=== PATIENT | female | born 1950 | race American Indian/Alaskan Native ===

== ENCOUNTER 2018-05-12 11:02 | Inpatient (IN) | payer MEDICARE, OTHER ==
--- NOTE | 2018-05-12 12:05 | C.PDOC ---
Time Seen by Provider: 05/12/18 11:37 Chief Complaint (Nursing): Weakness/Neurological Deficit Past Medical History Vital Signs: Last Vital Signs Temp 99.1 F 05/12/18 11:20 Pulse 102 H 05/12/18 11:20 Resp 15 05/12/18 11:20 BP 157/85 H 05/12/18 11:20 Pulse Ox 95 05/12/18 11:20 - Medical History PMH: HTN Denies: Chronic Kidney Disease - Social History Hx Alcohol Use: No Hx Substance Use: No ED Course And Treatment O2 Sat by Pulse Oximetry: 95 Disposition - Disposition
--- NOTE | 2018-05-12 12:16 | C.PDOC ---
History Of Present Illness WEAKNESS X 2 WKS, WORSE X 4 DAYS. S/P FALL 4 DAYS AGO DUE TO FEELING WEAK. "I LAID ON THE FLOOR FOR 30 MINS BUT WAS ABLE TO PULL MYSELF UP EVENTUALLY". PS STRUCK LLQ ON FLOOR, STILL W PERSIST PAIN. NO NV. ADVISED BY HER PROPOSAL EDITOR TO COME TO ER. NEW ONSET SUBJ FEVER AND CHILLS X 4 DAYS. DECR APPETITE X 2 WKS, +WT LOSS. +DECR UO. NO DYSURIA. EXAM MILD DIST HEENT ATRAUM LUNGS B/L RALES TO MID LUNGS NO RETRACTION SPEAKING FULL SENTNECES ABD +LLQ TEND SOFT NO R/G ATRAUM EXT AROM HIPS WO DIFF SKIN INTACT REMAINDER NEG MDM WEAKNESS, TRAUMA RO SEPSIS, INTRAABD INJ. Time Seen by Provider: 05/12/18 11:37 Chief Complaint (Nursing): Weakness/Neurological Deficit History Per: Patient History/Exam Limitations: no limitations Onset/Duration Of Symptoms: Days Current Symptoms Are (Timing): Still Present Severity: Moderate Past Medical History Reviewed: Historical Data, Nursing Documentation, Vital Signs Vital Signs: Last Vital Signs Temp 99.1 F 05/12/18 11:20 Pulse 102 H 05/12/18 11:20 Resp 15 05/12/18 11:20 BP 157/85 H 05/12/18 11:20 Pulse Ox 95 05/12/18 11:20 - Medical History PMH: HTN Denies: Chronic Kidney Disease Surgical History: No Surg Hx Family History: States: No Known Family Hx - Social History Hx Alcohol Use: No Hx Substance Use: No Review Of Systems Except As Marked, All Systems Reviewed And Found Negative. Constitutional: Positive for: Fever (subjective fever), Chills, Weakness, Weight loss Gastrointestinal: Positive for: Abdominal Pain (LLQ abdominal pain) Genitourinary: Negative for: Dysuria Physical Exam - Physical Exam Appears: Other (mild distress) Skin: Normal Color, Warm, Dry, Other (skin intact) Head: Atraumatic, Normacephalic Eye(s): bilateral: Normal Inspection Cardiovascular: Rhythm Regular Respiratory: Rales (bilateral rales to mid lungs), Other (no retractions, speaking full sentences) Gastrointestinal/Abdominal: Soft, Tenderness (LLQ tenderness), No Guarding, No Rebound, Other (atraumatic) Extremity: Normal ROM (AROM in hips w/p difficulty) Neurological/Psych: Oriented x3, Normal Speech ED Course And Treatment ECG: Interpreted By Me ECG Rhythm: Sinus Rhythm ECG Interpretation: Normal Rate From EC O2 Sat by Pulse Oximetry: 95 (RA) Pulse Ox Interpretation: Normal - Radiology CXR: Interpreted by Me CXR Interpretation: Yes: No Acute Disease - Other Rad PELVIS X-Ray: Interpreted by Me (NEG) Progress - Data Reviewed Data Reviewed: Lab, Diagnostic imaging, EKG, Old records - Critical Care Citical Care: Excluding Proc Time Critical Care Time: 90 minutes Medical Decision Making Medical Decision Making: WEAKNESS, TRAUMA RO SEPSIS, INTRAABD INJ. Plan: --Labs --UA --EKG --CXR --CT-Abd & Pelv. --[id number] Disposition - Disposition Disposition Time: 13:00 Condition: STABLE Instructions: Weakness (ED) Forms: [employer] (Vincentian) - Clinical Impression Clinical Impression: Abdominal trauma, Failure to thrive, Weakness - Scribe Statement The provider has reviewed the documentation as recorded by the Olga Lopez Provider Attestation: All medical record entries made by the Scribe were at my direction and personally dictated by me. I have reviewed the chart and agree that the record accurately reflects my personal performance of the history, physical exam, medical decision making, and the department course for this patient. I have also personally directed, reviewed, and agree with the discharge instructions and disposition. Physician Patient Turnover Patient Signed Over To: Doreen Daniels Handoff Comments: JOVANNY GR
[2018-05-12 13:24] LABS: VENOUS BLOOD GAS BASE EXCESS 2.6 mmol/L (0.0-2.0); VENOUS BLOOD GAS PCO2 41 mmHg (40-60); VENOUS BLOOD GAS PO2 37 mm/Hg (30-55); VENOUS BLOOD PH 7.43 (7.32-7.43)
[2018-05-12 13:33] LABS: BASO % 0.2 % (0.0-2.0); HEMOGLOBIN 13.1 g/dL (11.0-16.0); LYMPH # 0.9 K/uL (1.0-4.3); LYMPH % 6.7 % (20.0-40.0); MEAN CELL VOLUME 84.7 fL (81.0-99.0); MEAN CORPUSCULAR HGB CONC 33.1 g/dL (33.0-37.0); MEAN PLATELET VOLUME 9.3 fL (7.2-11.7); MONO # 1.5 K/uL (0.0-0.8); MONO % 10.9 % (0.0-10.0); NEUT # 11.1 K/uL (1.8-7.0); NEUT % 82.2 % (50.0-75.0); NRBC % 0.1 % (0.0-2.0); PLATELET COUNT 239 K/uL (130-400); RBC 4.66 Mil/uL (3.80-5.20); RED CELL DISTRIBUTION WIDTH 16.7 % (11.5-14.5); WHITE BLOOD COUNT 13.4 K/uL (4.8-10.8)
--- NOTE | 2018-05-12 13:35 | RAD ---
Date of service: 05/12/2018 PROCEDURE: Radiographs of the pelvis. HISTORY: TRAUMA COMPARISON: None. FINDINGS: BONES: Pelvic Bones: Osteopenic appearing sacrum-limited evaluation here. The overlying bowel gas further limits assessment. Hips: Bilateral hip arthrosis JOINTS: Sacroiliac Joints: Trace left sclerotic arthrosis iliac sided Pubic Symphysis: Trace subchondral sclerosis right parasymphyseal sided OTHER FINDINGS: Bilateral hemipelvic phleboliths. Bilateral arterial vascular calcifications. IMPRESSION: No for gross fracture appreciated. The generalized osteopenia and overlying prominent bowel gas especially limited assessment of the sacrum and medial right iliac bone. Elsewhere are degenerative changes as above.
[2018-05-12 13:41] LABS: INR 1.3; PROTHROMBIN TIME 13.9 SECONDS (9.7-12.2)
[2018-05-12 13:46] LABS: SQUAMOUS EPITHIAL 2 /hpf (0-5); URINE BACTERIA MANY (<OCC); URINE BILIRUBIN NEGATIVE (NEGATIVE); URINE BLOOD 1+ (NEGATIVE); URINE CLARITY Turbid (Clear); URINE COLOR Amber (YELLOW); URINE GLUCOSE (UA) NORMAL (Normal); URINE LEUKOCYTE ESTERASE 3+ Leu/uL (Negative); URINE PROTEIN 2+ mg/dL (NEGATIVE); URINE UROBILINOGEN NORMAL mg/dL (0.2-1.0); WBC CLUMPS MANY /hpf
[2018-05-12 13:48] LABS: ALB/GLOB RATIO 0.9 (1.0-2.1); ALBUMIN 3.2 g/dL (3.5-5.0); AST/SGOT 33 U/L (14-36); BLOOD UREA NITROGEN 23 mg/dL (7-17); CALCIUM 8.6 mg/dl (8.6-10.4); GFR NON-AFRICAN AMERICAN 41
[2018-05-12 13:49] LABS: ALT/SGPT < 6 U/L (9-52)
--- NOTE | 2018-05-12 13:58 | RAD ---
Date of service: 05/12/2018 HISTORY: Sepsis Patient COMPARISON: No prior. TECHNIQUE: 1 view obtained. FINDINGS: LUNGS: Lungs appear slightly overinflated with slight increased and coarsened interstitial markings. Findings could represent manifestations of COPD. There appears to be some mild bibasilar atelectasis and or scarring as well. Mild right apical pleural thickening suspected PLEURA: No significant pleural effusion identified, no pneumothorax apparent. CARDIOVASCULAR: Mild aortic atherosclerotic calcification present. Heart size is mildly enlarged. OSSEOUS STRUCTURES: No significant abnormalities. VISUALIZED UPPER ABDOMEN: Normal. OTHER FINDINGS: None. IMPRESSION: Lungs appear slightly overinflated with slight increased and coarsened interstitial markings. Findings could represent manifestations of COPD. There appears to be some mild bibasilar atelectasis and or scarring as well. Mild right apical pleural thickening suspected
[2018-05-12 14:00] LABS: B-TYPE NATRIURETIC PEPTIDE 1390 pg/mL (0-900)
[2018-05-12] MEDS ORDERED: Iodixanol 320 MG/ML 100 ML BOTTLE IV ONE (14:23)
[2018-05-12 14:38] LABS: BANDS 5 % (0-2); LYMPHOCYTE 6 % (20-40); MONOCYTE 11 % (0-10); NEUTROPHIL 77 % (50-75); PLATELET ESTIMATE NORMAL (NORMAL); REACTIVE LYMPHOCYTES 1 % (0-0); TOTAL CELLS COUNTED 100
[2018-05-12 14:39] LABS: ANISOCYTOSIS SLIGHT
[2018-05-12 15:34] LABS: VENOUS BLOOD GAS BASE EXCESS 1.5 mmol/L (0.0-2.0); VENOUS BLOOD GAS PCO2 39 mmHg (40-60); VENOUS BLOOD GAS PO2 34 mm/Hg (30-55); VENOUS BLOOD PH 7.43 (7.32-7.43)
--- NOTE | 2018-05-12 16:46 | CT ---
Date of service: 05/12/2018 PROCEDURE: CT Abdomen and Pelvis without intravenous contrast HISTORY: abd pain COMPARISON: None. TECHNIQUE: Without contrast. Contrast dose: None Radiation dose: Total exam DLP = 211 mGy-cm. This CT exam was performed using one or more of the following dose reduction techniques: Automated exposure control, adjustment of the mA and/or kV according to patient size, and/or use of iterative reconstruction technique. FINDINGS: LOWER THORAX: Bilateral small pleural effusions with minimal sub pleural effusion compressive atelectatic changes at both lung bases. A moderate pericardial effusion is noted. Consider echocardiogram for further evaluation if needed. Chronicity of this is unknown. LIVER: Unremarkable. No gross lesion or ductal dilatation. GALLBLADDER AND BILE DUCTS: Cholecystectomy clips PANCREAS: Unremarkable. No gross lesion or ductal dilatation. SPLEEN: Unremarkable. ADRENALS: Unremarkable. No mass. KIDNEYS AND URETERS: Unremarkable. No hydronephrosis. No solid mass. VASCULATURE: Unremarkable. No aortic aneurysm. There is presence of aortic atherosclerotic calcification and mural plaque on cross sectional studies. BOWEL: The exam is especially limited without any IV or oral contrast in the paucity of internal body fat. There is subcutaneous and diffuse mesenteric edema and anasarca state is suspect. There are apparent surgical changes anastomosis surgical changes probably affecting the small bowel loops which have a moderate amount of fluid in some distension within them in the abdomen and upper pelvis is apparent collapse left colonic loops present. With exception of some dilatation and patulous caliber in the rectosigmoid. No obstruction. No gross mural thickening. Below the iliac crest, it is difficult to identify with certainty any right typical colon with stool. Correlation with any known anastomosis in this patient in terms of any right colon resection anastomosis is needed. The stomach is not particularly distended-its wall appears thickened findings are indeterminate given the amount of distension and absent IV and oral contrast and ill definition between intra-abdominal organs in the surrounding fat planes. A diffuse gastritis or other infiltrating process here is not excluded. In addition to dilatation of some of the small bowel loops some of the small bowel loops have some mild thickened appearance to them-an enteritis is a consideration. The inferior and slightly left border of the elongated yet decompressed stomach is also in close proximity with colon loops region is indeterminate some thickening of this stomach and/or: Here is possible. APPENDIX: Not identified. PERITONEUM: There is free fluid in the pelvis.. LYMPH NODES: Unremarkable. No enlarged lymph nodes. BLADDER: Markedly distended. REPRODUCTIVE: Limited evaluation BONES: No acute fracture. Thoraco lumbar spondylosis-left iliac sided sclerotic arthrosis. Bilateral hip arthrosis. OTHER FINDINGS: None. IMPRESSION: Exam is markedly limited without IV or oral contrast. The exam is limited also because of paucity internal fat the ill definition blending appearance of the intra-abdominal and intrapelvic anatomy with the surrounding soft tissues intervening clearly defined fat planes. Subcutaneous edema and mesenteric edema are noted. An anasarca status is suggested. Free fluid in the cul-de-sac noted. Bilateral pleural effusions and pericardial effusion the pericardial effusion appears moderate-the chronicity of the pericardial effusion is unknown. Consider echocardiogram Postsurgical changes the details of which are unclear. Anastomosis involving small bowel loops which do appear somewhat dilated with air prominent air-fluid levels. A partial obstruction of the distal small bowel-without gross transitional point appreciated is a consideration. Limited visualization of any normal right colon loops are noted. Most of the left colon loops that are visualized appear collapsed and some ill definition to the inferior greater curvature region of the stomach and some left colonic loops are perceived this area anatomical segment is indeterminate. Close clinical follow-up recommended. Other findings as above.
[2018-05-12] MEDS ORDERED: cefTRIAXone IV 1 gm in Dextros 50 ML IVPB ONE (17:14)
--- NOTE | 2018-05-12 18:25 | RAD ---
Date of service: 05/12/2018 HISTORY: ABD PAIN COMPARISON: None available. TECHNIQUE: 1 view obtained. FINDINGS: BOWEL: Nonspecific bowel gas pattern. Mild constipation. Right upper quadrant surgical clips. Pelvic calcifications, likely phleboliths. BONES: Osseous demineralization. Degenerative changes. OTHER FINDINGS: Partially imaged cardiomegaly. The lung bases appear clear. IMPRESSION: Nonspecific bowel gas pattern. Mild constipation. Right upper quadrant surgical clips.
--- NOTE | 2018-05-12 18:38 | CP.PCM.CON ---
History of Present Illness - History of Present Illness History of Present Illness: SURGERY CONSULT NOTE FOR DR. HANCOCK Reason: CARYN 67M presents with abdominal pain that began on Friday. She states this pain is in the LLQ. She admits to not being able to tolerated any form of diet. She has been having this problem for a couple months now. She states she had an EGD and colonoscopy at [facility] 4 months ago but does not know the findings. Patient states she has not had a bowel movement in 1 month. She had admits to flatus. PMH: CAD, DM PSH: Ex-lap bowel resection for "twisting of bowel", Social: denies tobacco, alcohol, and illicit drug use Allergies: NKDA Past Patient History - Past Social History Smoking Status: Never Smoked - CARDIAC Hx Hypertension: Yes - PULMONARY Hx Respiratory Disorders: No - NEUROLOGICAL Hx Neurological Disorder: No - HEENT Hx HEENT Problems: No - RENAL Hx Chronic Kidney Disease: No - ENDOCRINE/METABOLIC Hx Diabetes Mellitus Type 2: Yes - HEMATOLOGICAL/ONCOLOGICAL Hx Blood Disorders: No - INTEGUMENTARY Hx Dermatological Problems: No - MUSCULOSKELETAL/RHEUMATOLOGICAL Hx Musculoskeletal Disorders: No - GASTROINTESTINAL Hx Nausea: Yes Other/Comment: unknown abd surgey - GENITOURINARY/GYNECOLOGICAL Hx Genitourinary Disorders: No - PSYCHIATRIC Hx Substance Use: No - SURGICAL HISTORY Other/Comment: unknown abd surgery - ANESTHESIA Hx Anesthesia: Yes Hx Anesthesia Reactions: No Hx Malignant Hyperthermia: No Meds Allergies/Adverse Reactions: Allergies Allergy/AdvReac Type Severity Reaction Status Date / Time No Known Allergies Allergy Unverified 05/12/18 11:28 Physical Exam - Constitutional Appears: Non-toxic, No Acute Distress - Eye Exam Eye Exam: EOMI, PERRL - ENT Exam ENT Exam: Mucous Membranes Moist - Respiratory Exam Respiratory Exam: Clear to Auscultation Bilateral, NORMAL BREATHING PATTERN - Cardiovascular Exam Cardiovascular Exam: REGULAR RHYTHM, +S1, +S2 - GI/Abdominal Exam GI & Abdominal Exam: Soft, Tenderness (LLQ ). absent: Distended, Firm, Guar ding, Rebound, Rigid - Extremities Exam Extremities exam: Negative for: pedal edema, tenderness - Neurological Exam Neurological exam: Alert, Oriented x3 - Psychiatric Exam Psychiatric exam: Normal Affect, Normal Mood - Skin Skin Exam: Dry, Intact, Normal Color, Warm Results - Vital Signs Recent Vital Signs: Last Vital Signs Temp 99.1 F 03/26/19 11:20 Pulse 109 H 05/12/18 18:02 Resp 22 05/12/18 18:02 BP 143/93 H 05/12/18 18:02 Pulse Ox 96 05/12/18 18:02 - Labs Result Diagrams: 05/12/18 13:20 05/12/18 13:20 Labs: Laboratory Results - last 24 hr 05/12/18 05/12/18 05/12/18 11:33 13:15 13:20 WBC 13.4 H RBC 4.66 Hgb 13.1 Hct 39.5 MCV 84.7 MCH 28.0 MCHC 33.1 RDW 16.7 H Plt Count 239 MPV 9.3 Neut % (Auto) 82.2 H Lymph % (Auto) 6.7 L [place] % (Auto) 10.9 H Eos % (Auto) 0.0 Baso % (Auto) 0.2 Neut # (Auto) 11.1 H Lymph # (Auto) 0.9 L [place] # (Auto) 1.5 H Eos # (Auto) 0.0 Baso # (Auto) 0.0 Neutrophils % (Manual) 77 H Band Neutrophils % 5 H Lymphocytes % (Manual) 6 L Reactive Lymphs % 1 H Monocytes % (Manual) 11 H Platelet Estimate Normal Anisocytosis (manual) Slight PT INR APTT pO2 37 VBG pH 7.43 VBG pCO2 41 VBG HCO3 26.3 VBG Total CO2 28.5 H VBG O2 Sat (Calc) 65.0 VBG Base Excess 2.6 H VBG Potassium 3.7 Sodium 130.0 L Chloride 96.0 L Glucose 121 H Lactate 1.1 Potassium Carbon Dioxide Anion Gap BUN Creatinine Est GFR ( Amer) Est GFR (Non-Af Amer) POC Glucose (mg/dL) 130 H Random Glucose Calcium Phosphorus Magnesium Total Bilirubin AST ALT Alkaline Phosphatase NT-Pro-B Natriuret Pep Total Protein Albumin Globulin Albumin/Globulin Ratio Venous Blood Potassium 3.7 Urine Color Urine Clarity Urine pH Ur Specific [place] Urine Protein Urine Glucose (UA) Urine Ketones Urine Blood Urine Nitrate Urine Bilirubin Urine Urobilinogen Ur Leukocyte Esterase Urine WBC (Auto) Urine RBC (Auto) Urine WBC Clumps (Auto) Ur Squamous Epith Cells Urine Bacteria Influenza Typ A,B (EIA) 05/12/18 05/12/18 05/12/18 13:20 13:20 13:20 WBC RBC Hgb Hct MCV MCH MCHC RDW Plt Count MPV Neut % (Auto) Lymph % (Auto) [place] % (Auto) Eos % (Auto) Baso % (Auto) Neut # (Auto) Lymph # (Auto) [place] # (Auto) Eos # (Auto) Baso # (Auto) Neutrophils % (Manual) Band Neutrophils % Lymphocytes % (Manual) Reactive Lymphs % Monocytes % (Manual) Platelet Estimate Anisocytosis (manual) PT 13.9 H INR 1.3 APTT 36 H pO2 VBG pH VBG pCO2 VBG HCO3 VBG Total CO2 VBG O2 Sat (Calc) VBG Base Excess VBG Potassium Sodium 125 L Chloride 91 L Glucose Lactate Potassium 4.0 Carbon Dioxide 28 Anion Gap 11 BUN 23 H Creatinine 1.3 H Est GFR ( Amer) 49 Est GFR (Non-Af Amer) 41 POC Glucose (mg/dL) Random Glucose 120 H Calcium 8.6 Phosphorus 2.7 Magnesium 2.1 Total Bilirubin 0.5 AST 33 ALT < 6 L Alkaline Phosphatase 148 H NT-Pro-B Natriuret Pep 1390 H Total Protein 6.6 Albumin 3.2 L Globulin 3.4 Albumin/Globulin Ratio 0.9 L Venous Blood Potassium Urine Color Urine Clarity Urine pH Ur Specific [place] Urine Protein Urine Glucose (UA) Urine Ketones Urine Blood Urine Nitrate Urine Bilirubin Urine Urobilinogen Ur Leukocyte Esterase Urine WBC (Auto) Urine RBC (Auto) Urine WBC Clumps (Auto) Ur Squamous Epith Cells Urine Bacteria Influenza Typ A,B (EIA) Negative for flu a/b 05/12/18 05/12/18 13:20 15:23 WBC RBC Hgb Hct MCV MCH MCHC RDW Plt Count MPV Neut % (Auto) Lymph % (Auto) [place] % (Auto) Eos % (Auto) Baso % (Auto) Neut # (Auto) Lymph # (Auto) [place] # (Auto) Eos # (Auto) Baso # (Auto) Neutrophils % (Manual) Band Neutrophils % Lymphocytes % (Manual) Reactive Lymphs % Monocytes % (Manual) Platelet Estimate Anisocytosis (manual) PT INR APTT pO2 34 VBG pH 7.43 VBG pCO2 39 L VBG HCO3 25.3 VBG Total CO2 27.1 VBG O2 Sat (Calc) 71.6 H VBG Base Excess 1.5 VBG Potassium 3.6 Sodium 128.0 L Chloride 94.0 L Glucose 118 H Lactate 0.9 Potassium Carbon Dioxide Anion Gap BUN Creatinine Est GFR ( Amer) Est GFR (Non-Af Amer) POC Glucose (mg/dL) Random Glucose Calcium Phosphorus Magnesium Total Bilirubin AST ALT Alkaline Phosphatase NT-Pro-B Natriuret Pep Total Protein Albumin Globulin Albumin/Globulin Ratio Venous Blood Potassium 3.6 Urine Color [place] Urine Clarity Turbid Urine pH 5.0 Ur Specific [place] 1.012 Urine Protein 2+ H Urine Glucose (UA) Normal Urine Ketones Negative Urine Blood 1+ H Urine Nitrate Negative Urine Bilirubin Negative Urine Urobilinogen Normal Ur Leukocyte Esterase 3+ H Urine WBC (Auto) 1545 H Urine RBC (Auto) 12 H Urine WBC Clumps (Auto) Many H Ur Squamous Epith Cells 2 Urine Bacteria Many H Influenza Typ A,B (EIA) Assessment & Plan - Assessment and Plan (Free Text) Assessment: 67F with abdominal pain, constipation, anorexia, due to unknown cause Plan: - NPO - IVF - Pain control - GI consult - Stool softeners, Enemas Further recs discuss with Dr. Billie Perea, PGY3
[2018-05-12] MEDS ORDERED: HYDROmorphone 0.5 mg/0.5 ml ISec IVP PRN (18:43)
[2018-05-12] MEDS: Sodium Chloride 0.9% 1,000 ML IV SCH (20:40)
[2018-05-12] MEDS: (Novolin R) Insulin Human Regular 100 units/ml vial SC SCH (21:27)
--- NOTE | 2018-05-12 23:55 | CP.PCM.HP ---
Present on Admission - Present on Admission Any Indicators Present on Admission: No Past Patient History - Past Medical History & Family History Past Medical History?: Yes - Past Social History Smoking Status: Former Smoker - CARDIAC Hx Hypertension: Yes - PULMONARY Hx Respiratory Disorders: No - NEUROLOGICAL Hx Neurological Disorder: No - HEENT Hx HEENT Problems: No - RENAL Hx Chronic Kidney Disease: No - ENDOCRINE/METABOLIC Hx Diabetes Mellitus Type 2: Yes - HEMATOLOGICAL/ONCOLOGICAL Hx Blood Disorders: No - INTEGUMENTARY Hx Dermatological Problems: No - MUSCULOSKELETAL/RHEUMATOLOGICAL Hx Musculoskeletal Disorders: No Hx Falls: Yes - GASTROINTESTINAL Hx Nausea: Yes Other/Comment: unknown abd surgey - GENITOURINARY/GYNECOLOGICAL Hx Genitourinary Disorders: No - PSYCHIATRIC Hx Substance Use: No - SURGICAL HISTORY Other/Comment: unknown abd surgery - ANESTHESIA Hx Anesthesia: Yes Hx Anesthesia Reactions: No Hx Malignant Hyperthermia: No Meds Allergies/Adverse Reactions: Allergies Allergy/AdvReac Type Severity Reaction Status Date / Time No Known Allergies Allergy Unverified 05/12/18 11:28 Results - Vital Signs Recent Vital Signs: Last Vital Signs Temp 99.7 F H 05/12/18 19:46 Pulse 106 H 05/12/18 23:20 Resp 20 05/12/18 19:46 BP 152/74 H 05/12/18 19:46 Pulse Ox 97 05/12/18 19:46 - Labs Result Diagrams: 05/12/18 13:20 05/12/18 13:20 Labs: Laboratory Results - last 24 hr 05/12/18 05/12/18 05/12/18 11:33 13:15 13:20 WBC 13.4 H RBC 4.66 Hgb 13.1 Hct 39.5 MCV 84.7 MCH 28.0 MCHC 33.1 RDW 16.7 H Plt Count 239 MPV 9.3 Neut % (Auto) 82.2 H Lymph % (Auto) 6.7 L [place] % (Auto) 10.9 H Eos % (Auto) 0.0 Baso % (Auto) 0.2 Neut # (Auto) 11.1 H Lymph # (Auto) 0.9 L [place] # (Auto) 1.5 H Eos # (Auto) 0.0 Baso # (Auto) 0.0 Neutrophils % (Manual) 77 H Band Neutrophils % 5 H Lymphocytes % (Manual) 6 L Reactive Lymphs % 1 H Monocytes % (Manual) 11 H Platelet Estimate Normal Anisocytosis (manual) Slight PT INR APTT pO2 37 VBG pH 7.43 VBG pCO2 41 VBG HCO3 26.3 VBG Total CO2 28.5 H VBG O2 Sat (Calc) 65.0 VBG Base Excess 2.6 H VBG Potassium 3.7 Sodium 130.0 L Chloride 96.0 L Glucose 121 H Lactate 1.1 Potassium Carbon Dioxide Anion Gap BUN Creatinine Est GFR ( Amer) Est GFR (Non-Af Amer) POC Glucose (mg/dL) 130 H Random Glucose Calcium Phosphorus Magnesium Total Bilirubin AST ALT Alkaline Phosphatase NT-Pro-B Natriuret Pep Total Protein Albumin Globulin Albumin/Globulin Ratio Venous Blood Potassium 3.7 Urine Color Urine Clarity Urine pH Ur Specific [place] Urine Protein Urine Glucose (UA) Urine Ketones Urine Blood Urine Nitrate Urine Bilirubin Urine Urobilinogen Ur Leukocyte Esterase Urine WBC (Auto) Urine RBC (Auto) Urine WBC Clumps (Auto) Ur Squamous Epith Cells Urine Bacteria Influenza Typ A,B (EIA) 05/12/18 05/12/18 05/12/18 13:20 13:20 13:20 WBC RBC Hgb Hct MCV MCH MCHC RDW Plt Count MPV Neut % (Auto) Lymph % (Auto) [place] % (Auto) Eos % (Auto) Baso % (Auto) Neut # (Auto) Lymph # (Auto) [place] # (Auto) Eos # (Auto) Baso # (Auto) Neutrophils % (Manual) Band Neutrophils % Lymphocytes % (Manual) Reactive Lymphs % Monocytes % (Manual) Platelet Estimate Anisocytosis (manual) PT 13.9 H INR 1.3 APTT 36 H pO2 VBG pH VBG pCO2 VBG HCO3 VBG Total CO2 VBG O2 Sat (Calc) VBG Base Excess VBG Potassium Sodium 125 L Chloride 91 L Glucose Lactate Potassium 4.0 Carbon Dioxide 28 Anion Gap 11 BUN 23 H Creatinine 1.3 H Est GFR ( Amer) 49 Est GFR (Non-Af Amer) 41 POC Glucose (mg/dL) Random Glucose 120 H Calcium 8.6 Phosphorus 2.7 Magnesium 2.1 Total Bilirubin 0.5 AST 33 ALT < 6 L Alkaline Phosphatase 148 H NT-Pro-B Natriuret Pep 1390 H Total Protein 6.6 Albumin 3.2 L Globulin 3.4 Albumin/Globulin Ratio 0.9 L Venous Blood Potassium Urine Color Urine Clarity Urine pH Ur Specific [place] Urine Protein Urine Glucose (UA) Urine Ketones Urine Blood Urine Nitrate Urine Bilirubin Urine Urobilinogen Ur Leukocyte Esterase Urine WBC (Auto) Urine RBC (Auto) Urine WBC Clumps (Auto) Ur Squamous Epith Cells Urine Bacteria Influenza Typ A,B (EIA) Negative for flu a/b 05/12/18 05/12/18 13:20 15:23 WBC RBC Hgb Hct MCV MCH MCHC RDW Plt Count MPV Neut % (Auto) Lymph % (Auto) [place] % (Auto) Eos % (Auto) Baso % (Auto) Neut # (Auto) Lymph # (Auto) [place] # (Auto) Eos # (Auto) Baso # (Auto) Neutrophils % (Manual) Band Neutrophils % Lymphocytes % (Manual) Reactive Lymphs % Monocytes % (Manual) Platelet Estimate Anisocytosis (manual) PT INR APTT pO2 34 VBG pH 7.43 VBG pCO2 39 L VBG HCO3 25.3 VBG Total CO2 27.1 VBG O2 Sat (Calc) 71.6 H VBG Base Excess 1.5 VBG Potassium 3.6 Sodium 128.0 L Chloride 94.0 L Glucose 118 H Lactate 0.9 Potassium Carbon Dioxide Anion Gap BUN Creatinine Est GFR ( Amer) Est GFR (Non-Af Amer) POC Glucose (mg/dL) Random Glucose Calcium Phosphorus Magnesium Total Bilirubin AST ALT Alkaline Phosphatase NT-Pro-B Natriuret Pep Total Protein Albumin Globulin Albumin/Globulin Ratio Venous Blood Potassium 3.6 Urine Color [place] Urine Clarity Turbid Urine pH 5.0 Ur Specific [place] 1.012 Urine Protein 2+ H Urine Glucose (UA) Normal Urine Ketones Negative Urine Blood 1+ H Urine Nitrate Negative Urine Bilirubin Negative Urine Urobilinogen Normal Ur Leukocyte Esterase 3+ H Urine WBC (Auto) 1545 H Urine RBC (Auto) 12 H Urine WBC Clumps (Auto) Many H Ur Squamous Epith Cells 2 Urine Bacteria Many H Influenza Typ A,B (EIA)
[2018-05-13] MEDS: Sodium Chloride 0.9% 1,000 ML IV SCH ×3 (05:43→15:23)
[2018-05-13] MEDS: (Novolin R) Insulin Human Regular 100 units/ml vial SC SCH ×4 (08:05→23:00)
[2018-05-13] MEDS: Pantoprazole 40 mg EC Tab PO SCH (09:04)
[2018-05-13] MEDS: Enoxaparin 30 mg Syringe SC SCH (09:04)
[2018-05-13] MEDS ORDERED: Magnesium Hydroxide Susp 30 ml UD PO ONE ×2 (09:30→10:45)
[2018-05-13 11:44] LABS: BASO % 0.2 % (0.0-2.0); HEMOGLOBIN 11.6 g/dL (11.0-16.0); LYMPH % 5.8 % (20.0-40.0); MEAN CELL VOLUME 85.4 fL (81.0-99.0); MEAN CORPUSCULAR HEMOGLOBIN 27.5 pg (27.0-31.0); MEAN CORPUSCULAR HGB CONC 32.2 g/dL (33.0-37.0); MEAN PLATELET VOLUME 9.3 fL (7.2-11.7); MONO # 1.3 K/uL (0.0-0.8); MONO % 7.5 % (0.0-10.0); NEUT % 86.5 % (50.0-75.0); PLATELET COUNT 245 K/uL (130-400); RED CELL DISTRIBUTION WIDTH 16.9 % (11.5-14.5); WHITE BLOOD COUNT 17.3 K/uL (4.8-10.8)
[2018-05-13] MEDS ORDERED: Dextrose 5%/0.45% NS 1,000 ML IV SCH (11:45)
[2018-05-13 12:14] LABS: CALCIUM 8.2 mg/dl (8.6-10.4)
[2018-05-13 12:20] LABS: ANISOCYTOSIS SLIGHT; HYPOCHROMIC SLIGHT; LYMPHOCYTE 6 % (20-40); MONOCYTE 9 % (0-10); NEUTROPHIL 85 % (50-75); PLATELET ESTIMATE NORMAL (NORMAL); TOTAL CELLS COUNTED 100
[2018-05-13 12:21] LABS: POLYCHROMIC SLIGHT
--- NOTE | 2018-05-13 13:08 | CP.PCM.PN ---
Subjective - Date & Time of Evaluation Date of Evaluation: 05/13/18 Time of Evaluation: 10:30 - Subjective Subjective: General Surgery dr. Wise Pt seen and exmained @bedside. No acute events overnight. pt reports continued L-sided abd pain but denies F/C, N/V, D/C. Pt amended previous statement regarding home bowel fxn. Pt reports multiple soft BMs of small quantity [employer]. tolerated juice and oatmeal for breakfast. Objective - Vital Signs/Intake and Output Vital Signs (last 24 hours): Temp Pulse Resp BP Pulse Ox 98.7 F 102 H 20 125/76 98 05/13/18 07:00 05/13/18 12:39 05/13/18 07:00 05/13/18 07:00 05/13/18 07:00 Intake and Output: 05/13/18 05/13/18 06:59 18:59 Intake Total 920 Balance 920 - Medications Medications: Current Medications Docusate Sodium (Colace) 100 mg PO DAILY [facility] Last Admin: 05/13/18 09:04 Dose: 100 mg Enoxaparin Sodium (Lovenox) 30 mg SC DAILY [facility] Last Admin: 05/13/18 09:04 Dose: 30 mg Hydralazine HCl (Apresoline) 25 mg PO TID [facility] Last Admin: 05/13/18 09:04 Dose: 25 mg Hydromorphone HCl (Dilaudid) 0.5 mg IVP Q6H PRN PRN Reason: Pain, severe (8-10) Last Admin: 05/12/18 22:40 Dose: 0.5 mg Sodium Chloride (Sodium Chloride 0.9%) 1,000 mls @ 80 mls/hr IV .[id number] [facility] Last Admin: 05/13/18 07:30 Dose: Not Given Ceftriaxone Sodium 1 gm/ (Sodium Chloride) 100 mls @ 100 mls/hr IVPB DAILY [facility]; Protocol Last Admin: 05/13/18 10:29 Dose: 100 mls/hr Sodium Chloride (Sodium Chloride 0.9%) 1,000 mls @ 100 mls/hr IV .Q10H [facility] Last Admin: 05/13/18 05:43 Dose: 100 mls/hr Dextrose/Sodium Chloride (Dextrose 5%/0.45% Ns 1000 Ml) 1,000 mls @ 100 mls/hr IV .Q10H [facility] Last Admin: 05/13/18 11:45 Dose: 100 mls/hr Insulin Human Regular (Novolin R) 0 unit SC ACHS [facility]; Protocol Last Admin: 05/13/18 11:46 Dose: 6 units Lisinopril (Zestril) 10 mg PO DAILY [facility] Last Admin: 05/13/18 09:04 Dose: 10 mg Metoclopramide HCl (Reglan) 10 mg IVP Q8 [facility] Last Admin: 05/13/18 10:58 Dose: 10 mg Pantoprazole Sodium (Protonix Ec Tab) 40 mg PO DAILY [facility] Last Admin: 05/13/18 09:04 Dose: 40 mg Sitagliptin Phosphate (Januvia) 50 mg PO DAILY [facility] Last Admin: 05/13/18 09:04 Dose: 50 mg - Labs Labs: 05/13/18 11:33 05/13/18 11:33 PT 13.9 SECONDS (9.7-12.2) H 05/12/18 13:20 INR 1.3 05/12/18 13:20 APTT 36 SECONDS (21-34) H 05/12/18 13:20 - Constitutional Appears: Non-toxic, No Acute Distress - Head Exam Head Exam: NORMAL INSPECTION - Eye Exam Eye Exam: Normal appearance - ENT Exam ENT Exam: Mucous Membranes Moist - Respiratory Exam Respiratory Exam: NORMAL BREATHING PATTERN. absent: Accessory Muscle Use, Respiratory Distress - Cardiovascular Exam Cardiovascular Exam: REGULAR RHYTHM. absent: Bradycardia, Tachycardia - GI/Abdominal Exam GI & Abdominal Exam: Soft, Tenderness (TTP L flank). absent: Distended, Firm, G uarding, Rebound - Extremities Exam Extremities Exam: Normal Inspection - Neurological Exam Neurological Exam: Alert, Awake, Oriented x3 - Psychiatric Exam Psychiatric exam: Normal Affect, Normal Mood - Skin Skin Exam: Dry, Intact, Normal Color, Warm Assessment and Plan - Assessment and Plan (Free Text) Assessment: 67 y/o F w/ abd pain Plan: - recommend GI consult - soap suds enema and MoM - monitor bowel fxn - reglan Q8 for possible dysmotility - ADAT - encourage OOB to chair/Amb - DVT PPx Pt discussed w/ Dr. Billie Foster DO PGY3
--- NOTE | 2018-05-13 18:36 | CARD ---
APPROVED REPORT Date of service: 05/12/2018 EKG Measurement Heart [id number] <Conclusion> Normal sinus rhythm Normal ECG
--- NOTE | 2018-05-13 18:53 | CARD ---
APPROVED REPORT Date of service: 05/13/2018 EXAM: Two-dimensional and M-mode echocardiogram with Doppler and color Doppler. Other Information Quality : GoodRhythm : INDICATION Pleural Effusion Cardiac Disease: CAD RISK FACTORS Hypertension Hyperlipidemia Diabetes 2D DIMENSIONS IVSd1.1 (0.7-1.1cm)LVDd3.7 (3.9-5.9cm) PWd1.2 (0.7-1.1cm)LA [id number] (18-58mL) LVDs2.3 (2.5-4.0cm)FS (%) 37.5 % LVEF (%)68.5 (>50%)LVEF (Mccracken's)63.12 % M-Mode DIMENSIONS Left Atrium (MM)3.76 (2.5-4.0cm)IVSd0.86 (0.7-1.1cm) Aortic Root3.23 (2.2-3.7cm)LVDd4.65 (4.0-5.6cm) Aortic Cusp Exc.2.04 (1.5-2.0cm)PWd0.84 (0.7-1.1cm) FS (%) 44 %LVDs2.61 (2.0-3.8cm) LVEF (%)75 (>50%) Mitral Valve MV E Xjxulsmg18.5cm/sMV A Tvtdsxoy698.5cm/sE/A ratio0.6 TDI Lateral E' Peak V6.66cm/sMedial E' Peak V5.80cm/sE/Lateral E'11.2 E/Medial E'12.8 Tricuspid Valve TR Peak Nignakjr513zf/sTR Peak Gr.29nrXiZGQJ10nkHm LEFT VENTRICLE The left ventricle is normal size. There is mild concentric left ventricular hypertrophy. Left ventricle systolic function is normal. The Ejection Fraction is 65-70%. There is normal LV segmental wall motion. Transmitral Doppler flow pattern is Grade I-abnormal relaxation pattern. There is no ventricular septal defect visualized. RIGHT VENTRICLE The right ventricle is normal size. The right ventricular systolic function is normal. ATRIA The left atrium is mildly dilated. The right atrium size is normal. AORTIC VALVE The aortic valve is mildly sclerotic. The aortic valve is tri-cuspid. No aortic regurgitation is present. There is no aortic valvular stenosis. MITRAL VALVE Mitral annular calcification is borderline. There is no evidence of mitral valve prolapse. Mitral regurgitation is trace. TRICUSPID VALVE The tricuspid valve is normal in structure. There is trace tricuspid regurgitation. Right ventricular systolic pressure is estimated at less than 30 mmHg. There is no pulmonary hypertension. PULMONIC VALVE The pulmonary valve is normal in structure. There is trace pulmonic valvular regurgitation. GREAT VESSELS The aortic root is normal in size. The ascending aorta is normal in size. The IVC is normal in size and collapses >50% with inspiration. PERICARDIAL EFFUSION There are echocardiographic indications for cardiac tamponade. There is a small circumferential pericardial effusion. There is an evidence of diastolic compression of the right atrium pericardial effusion. <Conclusion> There is mild concentric left ventricular hypertrophy. Left ventricle systolic function is normal. The Ejection Fraction is 65-70%. Transmitral Doppler flow pattern is Grade I-abnormal relaxation pattern. Mitral regurgitation is trace. There are echocardiographic indications for cardiac tamponade.
[2018-05-13] MEDS ORDERED: (Lantus) Insulin Glargine, Recombinant SC SCH (22:00)
--- NOTE | 2018-05-13 23:49 | CP.PCM.PN ---
Subjective - Date & Time of Evaluation Date of Evaluation: 05/13/18 Time of Evaluation: 12:45 - Subjective Subjective: dictated Objective - Vital Signs/Intake and Output Vital Signs (last 24 hours): Temp Pulse Resp BP Pulse Ox 98.6 F 109 H 20 153/70 H 98 05/13/18 16:00 05/13/18 16:00 05/13/18 16:00 05/13/18 16:00 05/13/18 16:00 Intake and Output: 05/13/18 05/14/18 18:59 06:59 Intake Total 1820 Balance 1820 - Medications Medications: Current Medications Docusate Sodium (Colace) 100 mg PO DAILY [facility] Last Admin: 05/13/18 09:04 Dose: 100 mg Enoxaparin Sodium (Lovenox) 30 mg SC DAILY [facility] Last Admin: 05/13/18 09:04 Dose: 30 mg Hydralazine HCl (Apresoline) 25 mg PO TID [facility] Last Admin: 05/13/18 17:30 Dose: 25 mg Hydromorphone HCl (Dilaudid) 0.5 mg IVP Q6H PRN PRN Reason: Pain, severe (8-10) Last Admin: 05/12/18 22:40 Dose: 0.5 mg Ceftriaxone Sodium 1 gm/ (Sodium Chloride) 100 mls @ 100 mls/hr IVPB DAILY [facility]; Protocol Last Admin: 05/13/18 10:29 Dose: 100 mls/hr Sodium Chloride (Sodium Chloride 0.9%) 1,000 mls @ 100 mls/hr IV .Q10H [facility] Last Admin: 05/13/18 15:23 Dose: 100 mls/hr Insulin Glargine (Lantus) 10 unit SC HS [facility] Last Admin: 05/13/18 23:06 Dose: 10 u Insulin Human Regular (Novolin R) 0 unit SC ACHS [facility]; Protocol Last Admin: 05/13/18 23:00 Dose: 2 units Lisinopril (Zestril) 10 mg PO DAILY [facility] Last Admin: 05/13/18 09:04 Dose: 10 mg Metoclopramide HCl (Reglan) 10 mg IVP Q8 [facility] Last Admin: 05/13/18 23:00 Dose: 10 mg Pantoprazole Sodium (Protonix Ec Tab) 40 mg PO DAILY [facility] Last Admin: 05/13/18 09:04 Dose: 40 mg Sitagliptin Phosphate (Januvia) 50 mg PO DAILY [facility] Last Admin: 05/13/18 09:04 Dose: 50 mg - Labs Labs: 05/13/18 11:33 05/13/18 11:33 PT 13.9 SECONDS (9.7-12.2) H 05/12/18 13:20 INR 1.3 05/12/18 13:20 APTT 36 SECONDS (21-34) H 05/12/18 13:20
[2018-05-14] MEDS: Sodium Chloride 0.9% 1,000 ML IV SCH ×4 (01:22→21:46)
--- NOTE | 2018-05-14 04:59 | PN ---
DATE: 05/13/2018 SUBJECTIVE: The patient continues to have abdominal pain, nausea, no vomiting, no bowel movements. She denies any fever, chills, rigors. She has been seen by surgery. The patient's CT of the abdomen is positive for intestinal obstruction. There is frequency of urination. Blood sugars are high. PHYSICAL EXAMINATION: VITAL SIGNS: Blood pressure 153/70, pulse 109, respiratory rate 20, temperature 98.6. LUNGS: Clear. No rales. No rhonchi. CARDIOVASCULAR SYSTEM: S1, S2 plus S4 positive. ABDOMEN: Diffuse tenderness, distended, bowel sounds are present. ASSESSMENT: 1. Intestinal obstruction, rule out, intestinal adhesions versus volvulus. 2. Dehydration. 3. Urinary tract infection. 4. Hypertension. 5. Diabetes. PLAN: Admit. Details orders are written. Seen and examined. Saroj Rendon MD
--- NOTE | 2018-05-14 07:40 | CP.PCM.PN ---
Subjective - Date & Time of Evaluation Date of Evaluation: 05/14/18 Time of Evaluation: 07:40 - Subjective Subjective: Progress Note for Dr. Wise Patient seen and examined at bedside. She states she had a small bowel movement last night, but continues to have abdominal pain. She states she has continued nausea, but has not had vomiting. She states she has not had a good appetite for the past month. She denies fevers, chills, headache, dizziness, chest pain, shortness of breath, dysuria, leg swelling. Objective - Vital Signs/Intake and Output Vital Signs (last 24 hours): Temp Pulse Resp BP Pulse Ox 98.6 F 99 H 20 131/73 98 05/13/18 23:05 05/14/18 02:21 05/13/18 23:05 05/13/18 23:05 05/13/18 23:05 Intake and Output: 05/14/18 05/14/18 06:59 18:59 Intake Total 950 Balance 950 - Medications Medications: Current Medications Docusate Sodium (Colace) 100 mg PO DAILY [facility] Last Admin: 05/13/18 09:04 Dose: 100 mg Enoxaparin Sodium (Lovenox) 30 mg SC DAILY [facility] Last Admin: 05/13/18 09:04 Dose: 30 mg Hydralazine HCl (Apresoline) 25 mg PO TID [facility] Last Admin: 05/13/18 17:30 Dose: 25 mg Hydromorphone HCl (Dilaudid) 0.5 mg IVP Q6H PRN PRN Reason: Pain, severe (8-10) Last Admin: 05/12/18 22:40 Dose: 0.5 mg Ceftriaxone Sodium 1 gm/ (Sodium Chloride) 100 mls @ 100 mls/hr IVPB DAILY [facility]; Protocol Last Admin: 05/13/18 10:29 Dose: 100 mls/hr Sodium Chloride (Sodium Chloride 0.9%) 1,000 mls @ 100 mls/hr IV .Q10H [facility] Last Admin: 05/14/18 01:22 Dose: 100 mls/hr Insulin Glargine (Lantus) 10 unit SC HS [facility] Last Admin: 05/13/18 23:06 Dose: 10 u Insulin Human Regular (Novolin R) 0 unit SC ACHS [facility]; Protocol Last Admin: 05/13/18 23:00 Dose: 2 units Lisinopril (Zestril) 10 mg PO DAILY [facility] Last Admin: 05/13/18 09:04 Dose: 10 mg Metoclopramide HCl (Reglan) 10 mg IVP Q8 [facility] Last Admin: 05/14/18 05:18 Dose: 10 mg Pantoprazole Sodium (Protonix Ec Tab) 40 mg PO DAILY [facility] Last Admin: 05/13/18 09:04 Dose: 40 mg Sitagliptin Phosphate (Januvia) 50 mg PO DAILY [facility] Last Admin: 05/13/18 09:04 Dose: 50 mg - Labs Labs: 05/13/18 11:33 05/13/18 11:33 PT 13.9 SECONDS (9.7-12.2) H 05/12/18 13:20 INR 1.3 05/12/18 13:20 APTT 36 SECONDS (21-34) H 05/12/18 13:20 - Constitutional Appears: Well, No Acute Distress - Head Exam Head Exam: ATRAUMATIC, NORMOCEPHALIC - Eye Exam Eye Exam: EOMI, PERRL - ENT Exam ENT Exam: Mucous Membranes Moist - Neck Exam Neck Exam: Full ROM - Respiratory Exam Respiratory Exam: NORMAL BREATHING PATTERN - Cardiovascular Exam Cardiovascular Exam: REGULAR RHYTHM, +S1, +S2 - GI/Abdominal Exam GI & Abdominal Exam: Soft, Tenderness (LLQ). absent: Distended Assessment and Plan - Assessment and Plan (Free Text) Assessment: 67 year old female with abdominal pain. Plan: Monitor to see if patient tolerates diet Monitor for further BMs Ensure supplement ordered. Ye Worthington, PGY1
[2018-05-14] MEDS: (Novolin R) Insulin Human Regular 100 units/ml vial SC SCH ×4 (08:08→21:43)
--- NOTE | 2018-05-14 08:15 | HP ---
CHIEF COMPLAINT: Abdominal pain x3. HISTORY OF PRESENT ILLNESS: This is a 67-year-old female with history of hypertension. She is compliant with diet, medication, and followup. The patient has a history of prior abdominal surgeries including , hysterectomy, and prior intestinal obstruction surgery. She is stable in her usual status of health. For the last 2 months, she has been having on and off abdominal pain, nausea, constipation, no diarrhea. According to the patient, four months ago, she was worked up by [facility] with no acute findings. The patient came to emergency room. Since Friday, she is having abdominal pain. It is diffuse, periumbilical in location, nonradiating to the back, associated with nausea, no vomiting, and she denies any diarrhea, but she has some constipation which is on and off, associated with generalized weakness and dizziness. She denies any fever or chills. She denies any cough, sore throat, or runny nose. She denies any polyuria, polydipsia, or polyphagia. She denies any history of hematuria or polyuria. She denies any history of sneezing, itchy eyes, or itchy nose. There is no history of trauma, fall, or loss of consciousness. There is no history of seizure-like activity. The patient denies any tingling, numbness, or paresthesias. CURRENT MEDICATIONS: She is on , lisinopril, Januvia, Basaglar, Periactin, Norvasc, hydralazine, and Voltaren. SOCIAL HISTORY: She is a nonsmoker, non-EtOH user. PHYSICAL EXAMINATION: GENERAL: An elderly female who is weak, sick looking with abdominal pain. VITAL SIGNS: Blood pressure 160/77, pulse 107, respiratory rate 32, temperature 98. SKIN: Senile turgor. No bruises. No purpura. No petechiae. No ecchymosis. HEENT: Atraumatic and normocephalic. Positive pallor. Negative jaundice. Extraocular movements are intact. NECK: Supple. No JVD. No lymph node. No thyromegaly. No carotid bruit. CHEST WALL: Bilateral symmetrical in expansion. No tenderness. No deformity. LUNGS: Bilaterally clear. No rales. No rhonchi. CARDIOVASCULAR SYSTEM: PMI not localized. S1 and S2 plus S4 positive. ABDOMEN: There is distention of the abdomen with a scar in the lower abdomen of prior surgeries, and bowel sounds are diminished and there is diffuse tenderness. RECTAL: No masses. No blood. No stool in the rectal vault. EXTREMITIES: No clubbing, cyanosis, or edema. CENTRAL NERVOUS SYSTEM: Awake, alert, and oriented x3. Cranial nerves II through XII are normal. Power 5/5 x4. Plantars are downgoing. ASSESSMENT: 1. Intestinal obstruction, most likely small bowel obstruction from prior adhesion. The patient also has history of volvulus in the past. 2. Urinary tract infection. 3. Dehydration. 4. Hypertension. 5. Poorly controlled diabetes. PLAN: Admit. Detailed orders are written. Seen and examined. Saroj Rendon MD
[2018-05-14 08:29] LABS: BASO # 0.2 K/uL (0.0-0.2); BASO % 0.9 % (0.0-2.0); EOS % 0.1 % (0.0-4.0); HEMOGLOBIN 11.5 g/dL (11.0-16.0); LYMPH # 0.6 K/uL (1.0-4.3); LYMPH % 3.6 % (20.0-40.0); MEAN CELL VOLUME 84.9 fL (81.0-99.0); MEAN CORPUSCULAR HEMOGLOBIN 27.9 pg (27.0-31.0); MEAN CORPUSCULAR HGB CONC 32.8 g/dL (33.0-37.0); MEAN PLATELET VOLUME 8.6 fL (7.2-11.7); MONO # 1.6 K/uL (0.0-0.8); MONO % 9.1 % (0.0-10.0); NEUT # 15.4 K/uL (1.8-7.0); NEUT % 86.3 % (50.0-75.0); PLATELET COUNT 275 K/uL (130-400); RBC 4.13 Mil/uL (3.80-5.20); RED CELL DISTRIBUTION WIDTH 16.5 % (11.5-14.5); WHITE BLOOD COUNT 17.8 K/uL (4.8-10.8)
[2018-05-14 08:43] LABS: CALCIUM 8.2 mg/dl (8.6-10.4)
[2018-05-14 10:25] LABS: BANDS 1 % (0-2); LYMPHOCYTE 2 % (20-40); MONOCYTE 10 % (0-10); NEUTROPHIL 87 % (50-75); PLATELET ESTIMATE NORMAL (NORMAL); TOTAL CELLS COUNTED 100
[2018-05-14] MEDS: Enoxaparin 30 mg Syringe SC SCH (10:25)
[2018-05-14] MEDS: Pantoprazole 40 mg EC Tab PO SCH (10:26)
[2018-05-14 10:31] LABS: ANISOCYTOSIS SLIGHT
[2018-05-14 10:32] LABS: BURR CELLS SLIGHT
--- NOTE | 2018-05-14 21:27 | CP.PCM.CON ---
History of Present Illness - History of Present Illness History of Present Illness: INFECTIOUS DISEASE CONSULT; DICTATED;05/14/18 DICT NO # [id number]. SEE REPORT SEE ORDERS, Past Patient History - Past Medical History & Family History Past Medical History?: Yes - Past Social History Smoking Status: Former Smoker - CARDIAC Hx Hypertension: Yes - PULMONARY Hx Respiratory Disorders: No - NEUROLOGICAL Hx Neurological Disorder: No - HEENT Hx HEENT Problems: No - RENAL Hx Chronic Kidney Disease: No - ENDOCRINE/METABOLIC Hx Diabetes Mellitus Type 2: Yes - HEMATOLOGICAL/ONCOLOGICAL Hx Blood Disorders: No - INTEGUMENTARY Hx Dermatological Problems: No - MUSCULOSKELETAL/RHEUMATOLOGICAL Hx Musculoskeletal Disorders: No Hx Falls: Yes - GASTROINTESTINAL Hx Nausea: Yes Other/Comment: unknown abd surgey - GENITOURINARY/GYNECOLOGICAL Hx Genitourinary Disorders: No - PSYCHIATRIC Hx Substance Use: No - SURGICAL HISTORY Other/Comment: unknown abd surgery - ANESTHESIA Hx Anesthesia: Yes Hx Anesthesia Reactions: No Hx Malignant Hyperthermia: No Meds Allergies/Adverse Reactions: Allergies Allergy/AdvReac Type Severity Reaction Status Date / Time No Known Allergies Allergy Unverified 05/12/18 11:28 - Medications Medications: Current Medications Acetaminophen (Tylenol 325mg Tab) 650 mg PO Q4 PRN PRN Reason: Fever >100.4 F Last Admin: 05/14/18 20:22 Dose: 650 mg Docusate Sodium (Colace) 100 mg PO DAILY [facility] Last Admin: 05/14/18 10:26 Dose: 100 mg Enoxaparin Sodium (Lovenox) 30 mg SC DAILY [facility] Last Admin: 05/14/18 10:25 Dose: 30 mg Hydralazine HCl (Apresoline) 25 mg PO TID [facility] Last Admin: 05/14/18 17:27 Dose: 25 mg Hydromorphone HCl (Dilaudid) 0.5 mg IVP Q6H PRN PRN Reason: Pain, severe (8-10) Last Admin: 05/12/18 22:40 Dose: 0.5 mg Ceftriaxone Sodium 1 gm/ (Sodium Chloride) 100 mls @ 100 mls/hr IVPB DAILY [facility]; Protocol Last Admin: 05/14/18 10:27 Dose: 100 mls/hr Sodium Chloride (Sodium Chloride 0.9%) 1,000 mls @ 100 mls/hr IV .Q10H [facility] Last Admin: 05/14/18 12:16 Dose: 100 mls/hr Insulin Glargine (Lantus) 20 unit SC HS [facility] Insulin Human Regular (Novolin R) 0 unit SC ACHS [facility]; Protocol Last Admin: 05/14/18 17:27 Dose: 6 units Lisinopril (Zestril) 10 mg PO DAILY [facility] Last Admin: 05/14/18 10:26 Dose: 10 mg Metoclopramide HCl (Reglan) 10 mg IVP Q8 [facility] Last Admin: 05/14/18 13:29 Dose: 10 mg Pantoprazole Sodium (Protonix Ec Tab) 40 mg PO DAILY [facility] Last Admin: 05/14/18 10:26 Dose: 40 mg Sitagliptin Phosphate (Januvia) 50 mg PO DAILY [facility] Last Admin: 05/14/18 10:26 Dose: 50 mg Results - Vital Signs Recent Vital Signs: Last Vital Signs Temp 102.4 F H 05/14/18 20:22 Pulse 120 H 05/14/18 19:24 Resp 20 05/14/18 19:24 BP 154/73 H 05/14/18 19:24 Pulse Ox 97 05/14/18 19:24 - Labs Result Diagrams: 05/14/18 08:24 05/14/18 08:24 Labs: Laboratory Results - last 24 hr 05/14/18 05/14/18 05/14/18 08:24 08:24 11:00 WBC 17.8 H RBC 4.13 Hgb 11.5 Hct 35.0 MCV 84.9 MCH 27.9 MCHC 32.8 L RDW 16.5 H Plt Count 275 MPV 8.6 Neut % (Auto) 86.3 H Lymph % (Auto) 3.6 L [place] % (Auto) 9.1 Eos % (Auto) 0.1 Baso % (Auto) 0.9 Neut # (Auto) 15.4 H Lymph # (Auto) 0.6 L [place] # (Auto) 1.6 H Eos # (Auto) 0.0 Baso # (Auto) 0.2 Neutrophils % (Manual) 87 H Band Neutrophils % 1 Lymphocytes % (Manual) 2 L Monocytes % (Manual) 10 Platelet Estimate Normal Anisocytosis (manual) Slight Tona Cells Slight Sodium 129 L Potassium 4.0 Chloride 100 Carbon Dioxide 23 Anion Gap 11 BUN 21 H Creatinine 1.2 Est GFR ( Amer) 54 Est GFR (Non-Af Amer) 45 POC Glucose (mg/dL) 323 H Random Glucose 325 H Calcium 8.2 L 05/14/18 16:06 WBC RBC Hgb Hct MCV MCH MCHC RDW Plt Count MPV Neut % (Auto) Lymph % (Auto) [place] % (Auto) Eos % (Auto) Baso % (Auto) Neut # (Auto) Lymph # (Auto) [place] # (Auto) Eos # (Auto) Baso # (Auto) Neutrophils % (Manual) Band Neutrophils % Lymphocytes % (Manual) Monocytes % (Manual) Platelet Estimate Anisocytosis (manual) Tona Cells Sodium Potassium Chloride Carbon Dioxide Anion Gap BUN Creatinine Est GFR ( Amer) Est GFR (Non-Af Amer) POC Glucose (mg/dL) 477 H* Random Glucose Calcium Assessment & Plan (1) Gram negative sepsis Status: Acute (2) UTI (urinary tract infection) Status: Acute (3) Abdominal pain Status: Acute (4) Diabetes mellitus Status: Acute (5) Constipation Status: Acute - Assessment and Plan (Free Text) Plan: PLAN; START iv MAXIPEME 1 G IVPB EVERY 12 HRLY . ADD IV AMIKACIN 500MG IVPB X1 STAT DOSE 05/14/18. ADD iv FLAGYL 500 MG IVPB EVERY 8 HOURLY 05/14/18 FOR ANAEROBIC COVERAGE. DC IV ROCEPHIN. 2D ECHO TO EVALUATE LVEF / PERICARDIAL EFFUSION. CXR IN AM TO EVALUATE BILATERAL PLEURAL EFFUSIONS /INFILTRATES. F/U CULTURES TO ADJUST ANTIBIOTICS. SURGERY ON BOARD. WILL FOLLOW ALONG WITH YOU AND MAKE FURTHER RECOMMENDATIONS NEEDED.
[2018-05-14] MEDS: (Lantus) Insulin Glargine, Recombinant SC SCH (21:43)
--- NOTE | 2018-05-14 21:58 | CP.PCM.PN ---
Subjective - Date & Time of Evaluation Date of Evaluation: 05/14/18 Time of Evaluation: 07:40 - Subjective Subjective: dictated Objective - Vital Signs/Intake and Output Vital Signs (last 24 hours): Temp Pulse Resp BP Pulse Ox 99 F 120 H 20 154/73 H 97 05/14/18 21:22 05/14/18 19:24 05/14/18 19:24 05/14/18 19:24 05/14/18 19:24 Intake and Output: 05/14/18 05/15/18 18:59 06:59 Intake Total 1000 Balance 1000 - Medications Medications: Current Medications Acetaminophen (Tylenol 325mg Tab) 650 mg PO Q4 PRN PRN Reason: Fever >100.4 F Last Admin: 05/14/18 20:22 Dose: 650 mg Docusate Sodium (Colace) 100 mg PO DAILY [facility] Last Admin: 05/14/18 10:26 Dose: 100 mg Enoxaparin Sodium (Lovenox) 30 mg SC DAILY [facility] Last Admin: 05/14/18 10:25 Dose: 30 mg Hydralazine HCl (Apresoline) 25 mg PO TID [facility] Last Admin: 05/14/18 17:27 Dose: 25 mg Hydromorphone HCl (Dilaudid) 0.5 mg IVP Q6H PRN PRN Reason: Pain, severe (8-10) Last Admin: 05/12/18 22:40 Dose: 0.5 mg Ceftriaxone Sodium 1 gm/ (Sodium Chloride) 100 mls @ 100 mls/hr IVPB DAILY [facility]; Protocol Last Admin: 05/14/18 10:27 Dose: 100 mls/hr Sodium Chloride (Sodium Chloride 0.9%) 1,000 mls @ 100 mls/hr IV .Q10H [facility] Last Admin: 05/14/18 21:46 Dose: Not Given Amikacin Sulfate 500 mg/ (Sodium Chloride) 252 mls @ 250 mls/hr IVPB Q24H [facility]; Protocol Insulin Glargine (Lantus) 20 unit SC HS [facility] Last Admin: 05/14/18 21:43 Dose: 20 units Insulin Human Regular (Novolin R) 0 unit SC ACHS [facility]; Protocol Last Admin: 05/14/18 21:43 Dose: Not Given Lisinopril (Zestril) 10 mg PO DAILY [facility] Last Admin: 05/14/18 10:26 Dose: 10 mg Metoclopramide HCl (Reglan) 10 mg IVP Q8 [facility] Last Admin: 05/14/18 21:43 Dose: 10 mg Pantoprazole Sodium (Protonix Ec Tab) 40 mg PO DAILY [facility] Last Admin: 05/14/18 10:26 Dose: 40 mg Sitagliptin Phosphate (Januvia) 50 mg PO DAILY [facility] Last Admin: 05/14/18 10:26 Dose: 50 mg - Labs Labs: 05/14/18 08:24 05/14/18 08:24 PT 13.9 SECONDS (9.7-12.2) H 05/12/18 13:20 INR 1.3 05/12/18 13:20 APTT 36 SECONDS (21-34) H 05/12/18 13:20
[2018-05-14] MEDS: Amikacin Sulfate 500 MG in Sodium Chloride 0.9% 250 ML IVPB SCH (22:15)
[2018-05-14] MEDS: Cefepime 1 GM in Sodium Chloride 0.9% 50 ML IVPB SCH (23:49)
[2018-05-14] MEDS: metroNIDAZOLE IV 500 mg/100 ml 500 MG/100 ML BAG IVPB SCH (23:51)
[2018-05-15] MEDS: Sodium Chloride 0.9% 1,000 ML IV SCH ×3 (05:19→19:26)
--- NOTE | 2018-05-15 05:40 | CON ---
DATE: 05/14/2018 INFECTIOUS DISEASE CONSULTATION REQUESTED BY: Saroj Rendon MD REASON FOR CONSULTATION: Gram-negative bacteremia and gram-negative urosepsis with a fever of 102.4 and abdominal pain. CHIEF COMPLAINT TO THE PATIENT: Abdominal pain, nausea, and high fever. HISTORY OF PRESENT ILLNESS: The patient is a 67-year-old Afro-Malagasy female with multiple medical problems including diabetes mellitus, hypertension and history of multiple previous surgeries abdominal including , hysterectomy and prior intestinal obstruction surgeries. The patient was in her usual state of health until two months prior to this admission, which started having abdominal pain, nausea and constipation. The patient states she was worked up about four months ago at [facility] with no acute findings. She states she also had a colonoscopy done, but she does not know the findings. The patient came to the emergency room because of increasing abdominal pain which was mainly diffuse, periumbilical in location and nonradiating to the back associated with nausea but no vomiting. The patient denies any diarrhea but states she had constipation and has not had a good bowel movement for many, many days. The patient denies any fever or chills. The patient was seen by Surgery as noted and events noted. The patient underwent a CAT scan of the abdomen and pelvis without p.o. and IV contrast, report of which is consistent with questionable bowel obstruction with air-fluid levels. An abdominal scan was also taken on 05/12/2018 which showed nonspecific bowel pattern with mild constipation and right upper quadrant clips. The patient still continues to have abdominal pain, and Surgery is on board. Infectious Disease consultation today requested by PMD as the patient spiked a fever of 102.4, also blood cultures reported positive for gram-negative rods and urine culture also reported positive for gram-negative rods. The patient also has leukocytosis with WBC count of 17.8, hemoglobin of 11.5 and hematocrit of 35 and platelets are adequate. The patient's renal function was stable with a creatinine of 1.2 and BUN of 21. Liver function tests, mild transaminitis with AST of 38, ALT normal, alkaline phosphatase of 148. The patient presently denies any dysuria or hematuria. Denies any previous history of kidney stones. PAST MEDICAL HISTORY: As above, history of hypertension, history of poorly controlled diabetes mellitus, history of multiple surgeries including C-sections, hysterectomy, prior intestinal obstruction surgery with history of volvulus at one time as reported per chart. CURRENT MEDICATIONS: Please see the MAR. The patient is presently on IV Rocephin 1 g once a day daily. The patient is also getting lisinopril, Periactin, Norvasc, hydralazine and Voltaren. SOCIAL HISTORY: The patient is nonsmoker and nonalcoholic. Denies any drug abuse. PHYSICAL EXAMINATION: GENERAL: Elderly female, very week and emaciated, sick looking, generalized abdominal pain. VITAL SIGNS: Blood pressure 130/76, pulse of 110, respiration rate 18 per minute, temperature 102.4. HEENT: Pupils equal and reactive to light and accommodation. Extraocular movements full. Fundus not well visualized. Sclerae nonicteric. Conjunctivae normal. JVP not elevated. No lymphadenopathy appreciated. No thyromegaly. No carotid bruit. LUNGS: Diminished breath sounds at the bases. Otherwise clear. No rales or rhonchi. CARDIOVASCULAR SYSTEM: PMI not localized. S1 and S2 plus S4 positive. ABDOMEN: Mildly distended with scar in the lower abdomen from prior surgeries. Bowel sounds are diminished. There is generalized tenderness. RECTAL: Deferred. EXTREMITIES: No clubbing, cyanosis or edema. CENTRAL NERVOUS SYSTEM: Awake, oriented. Cranial nerves II through XII seem to be intact. Power is 5/5. Plantars are downgoing. LABORATORY DATA: WBC 17.8, H and H of 11.5 and 35, platelets 275. Creatinine 1.2, BUN of 21. Blood cultures reported gram-negative rods. Urine culture gram-negative rods. Liver function tests: Bilirubin normal of 0.5, AST of 38, alkaline phosphatase of 148, ALT is less than 6. Chest x-ray noted coarse interstitial markings consistent with COPD, bibasilar atelectasis and scarring, right apical pleural thickening. IMPRESSION: 1. Abdominal pain, generalized, questionable intestinal obstruction versus adhesions versus volvulus. 2. Gram-negative sepsis, source questionable genitourinary versus gastrointestinal. 3. Urosepsis with gram-negative rods. 4. Hypertension by history. 5. Diabetes mellitus, poorly controlled. RECOMMENDATIONS: Suggest gutierrez cultures. Discontinue IV Rocephin at present. We will give IV amikacin 500 mg stat dose in view of gram-negative bacteremia and urosepsis. Start IV cefepime 1 g every 12 hourly to cover better for Pseudomonas. Also add IV Flagyl 500 mg IV Piggyback every 8 hourly for anaerobic coverage. Repeat CBC, BMP and liver function tests tomorrow. Surgeon on board will follow up with you and make further recommendations as needed. Thank you very much for allowing me to participate in the care of your patient. Keke Mathew MD
[2018-05-15] MEDS: metroNIDAZOLE IV 500 mg/100 ml 500 MG/100 ML BAG IVPB SCH ×2 (06:32→14:32)
[2018-05-15 07:35] LABS: BASO # 0.1 K/uL (0.0-0.2); BASO % 0.4 % (0.0-2.0); EOS % 0.2 % (0.0-4.0); HEMOGLOBIN 11.6 g/dL (11.0-16.0); LYMPH # 0.7 K/uL (1.0-4.3); LYMPH % 4.5 % (20.0-40.0); MEAN CELL VOLUME 84.6 fL (81.0-99.0); MEAN CORPUSCULAR HEMOGLOBIN 27.3 pg (27.0-31.0); MEAN CORPUSCULAR HGB CONC 32.3 g/dL (33.0-37.0); MEAN PLATELET VOLUME 8.8 fL (7.2-11.7); MONO # 1.5 K/uL (0.0-0.8); MONO % 9.5 % (0.0-10.0); NEUT # 13.4 K/uL (1.8-7.0); NEUT % 85.4 % (50.0-75.0); PLATELET COUNT 287 K/uL (130-400); RBC 4.24 Mil/uL (3.80-5.20); RED CELL DISTRIBUTION WIDTH 16.6 % (11.5-14.5); WHITE BLOOD COUNT 15.6 K/uL (4.8-10.8)
[2018-05-15 07:47] LABS: ALBUMIN 2.7 g/dL (3.5-5.0)
[2018-05-15] MEDS: (Novolin R) Insulin Human Regular 100 units/ml vial SC SCH ×4 (07:52→23:01)
[2018-05-15 08:01] LABS: ALB/GLOB RATIO 0.8 (1.0-2.1); ALBUMIN 2.6 g/dL (3.5-5.0); BILIRUBIN,DIRECT 0.2 mg/dL (0.0-0.4); CALCIUM 8.5 mg/dl (8.6-10.4)
--- NOTE | 2018-05-15 08:12 | CP.PCM.PN ---
Subjective - Date & Time of Evaluation Date of Evaluation: 05/15/18 Time of Evaluation: 08:09 - Subjective Subjective: Progress Note for Dr. Wise Patient seen and examined at bedside. She states her pain is persistent. She has no nausea or vomiting. She has not had a bowel movement yesterday. She denies fevers, chills, chest pain, shortness of breath, headache, dysuria, leg swelling. Objective - Vital Signs/Intake and Output Vital Signs (last 24 hours): Temp Pulse Resp BP Pulse Ox 98.1 F 114 H 20 147/75 97 05/15/18 03:41 05/15/18 07:34 05/15/18 03:41 05/15/18 03:41 05/15/18 03:41 Intake and Output: 05/15/18 05/15/18 06:59 18:59 Intake Total 800 Output Total 1200 Balance -400 - Medications Medications: Current Medications Acetaminophen (Tylenol 325mg Tab) 650 mg PO Q4 PRN PRN Reason: Fever >100.4 F Last Admin: 05/14/18 20:22 Dose: 650 mg Docusate Sodium (Colace) 100 mg PO DAILY [facility] Last Admin: 05/14/18 10:26 Dose: 100 mg Enoxaparin Sodium (Lovenox) 30 mg SC DAILY [facility] Last Admin: 05/14/18 10:25 Dose: 30 mg Hydralazine HCl (Apresoline) 25 mg PO TID [facility] Last Admin: 05/14/18 17:27 Dose: 25 mg Hydromorphone HCl (Dilaudid) 0.5 mg IVP Q6H PRN PRN Reason: Pain, severe (8-10) Last Admin: 05/12/18 22:40 Dose: 0.5 mg Sodium Chloride (Sodium Chloride 0.9%) 1,000 mls @ 100 mls/hr IV .Q10H [facility] Last Admin: 05/15/18 07:30 Dose: Not Given Amikacin Sulfate 500 mg/ (Sodium Chloride) 252 mls @ 250 mls/hr IVPB Q24H [facility]; Protocol Last Admin: 05/14/18 22:15 Dose: 250 mls/hr Cefepime HCl 1 gm/ Sodium (Chloride) 50 mls @ 100 mls/hr IVPB Q12H [facility]; Protocol Last Admin: 05/14/18 23:49 Dose: 100 mls/hr Metronidazole (Flagyl) 500 mg in 100 mls @ 100 mls/hr IVPB Q8H [facility]; Protocol Last Admin: 05/15/18 06:32 Dose: 100 mls/hr Insulin Glargine (Lantus) 20 unit SC HS [facility] Last Admin: 05/14/18 21:43 Dose: 20 units Insulin Human Regular (Novolin R) 0 unit SC ACHS [facility]; Protocol Last Admin: 05/15/18 07:52 Dose: 4 units Lisinopril (Zestril) 10 mg PO DAILY [facility] Last Admin: 05/14/18 10:26 Dose: 10 mg Metoclopramide HCl (Reglan) 10 mg IVP Q8 [facility] Last Admin: 05/15/18 05:19 Dose: 10 mg Pantoprazole Sodium (Protonix Ec Tab) 40 mg PO DAILY [facility] Last Admin: 05/14/18 10:26 Dose: 40 mg Sitagliptin Phosphate (Januvia) 50 mg PO DAILY [facility] Last Admin: 05/14/18 10:26 Dose: 50 mg - Labs Labs: 05/15/18 07:26 05/15/18 07:26 PT 13.9 SECONDS (9.7-12.2) H 05/12/18 13:20 INR 1.3 05/12/18 13:20 APTT 36 SECONDS (21-34) H 05/12/18 13:20 - Constitutional Appears: Well, No Acute Distress - Head Exam Head Exam: ATRAUMATIC, NORMOCEPHALIC - Eye Exam Eye Exam: EOMI, PERRL - ENT Exam ENT Exam: Mucous Membranes Moist - Neck Exam Neck Exam: Full ROM - Respiratory Exam Respiratory Exam: NORMAL BREATHING PATTERN - Cardiovascular Exam Cardiovascular Exam: REGULAR RHYTHM - GI/Abdominal Exam GI & Abdominal Exam: Soft, Tenderness (Mild LLQ tenderness ) - Neurological Exam Neurological Exam: Alert, Awake, Oriented x3 - Skin Skin Exam: Dry, Intact, Warm Assessment and Plan - Assessment and Plan (Free Text) Assessment: 67 year old female with abdominal pain, possible small bowel obstruction. Plan: Monitor to see if patient tolerates diet Continue to monitor for BMs. Follow up GI recs. Ye Worthington,PGY1
[2018-05-15 08:40] LABS: ERYTHROCYTE SEDIMENTATION RATE 108 mm/hr (0-20)
[2018-05-15] MEDS: Pantoprazole 40 mg EC Tab PO SCH (09:23)
[2018-05-15] MEDS: Enoxaparin 30 mg Syringe SC SCH (09:23)
[2018-05-15 09:44] LABS: ANISOCYTOSIS SLIGHT; BANDS 3 % (0-2); LYMPHOCYTE 6 % (20-40); MONOCYTE 9 % (0-10); NEUTROPHIL 82 % (50-75); PLATELET ESTIMATE NORMAL (NORMAL); POIKILOCYTOSIS SLIGHT; TOTAL CELLS COUNTED 100
[2018-05-15 09:45] LABS: BURR CELLS SLIGHT; LARGE PLATELETS PRESENT
[2018-05-15] MEDS: Cefepime 1 GM in Sodium Chloride 0.9% 50 ML IVPB SCH ×2 (10:51→22:57)
--- NOTE | 2018-05-15 12:41 | CP.PCM.PN ---
Subjective - Date & Time of Evaluation Date of Evaluation: 05/15/18 Time of Evaluation: 07:20 - Subjective Subjective: dictated Objective - Vital Signs/Intake and Output Vital Signs (last 24 hours): Temp Pulse Resp BP Pulse Ox 99.6 F 114 H 20 167/86 H 96 05/15/18 07:00 05/15/18 07:34 05/15/18 07:00 05/15/18 07:00 05/15/18 07:00 Intake and Output: 05/15/18 05/15/18 06:59 18:59 Intake Total 800 Output Total 1200 Balance -400 - Medications Medications: Current Medications Acetaminophen (Tylenol 325mg Tab) 650 mg PO Q4 PRN PRN Reason: Fever >100.4 F Last Admin: 05/14/18 20:22 Dose: 650 mg Docusate Sodium (Colace) 100 mg PO DAILY [facility] Last Admin: 05/15/18 09:24 Dose: 100 mg Enoxaparin Sodium (Lovenox) 30 mg SC DAILY [facility] Last Admin: 05/15/18 09:23 Dose: 30 mg Hydralazine HCl (Apresoline) 25 mg PO TID [facility] Last Admin: 05/15/18 09:23 Dose: 25 mg Hydromorphone HCl (Dilaudid) 0.5 mg IVP Q6H PRN PRN Reason: Pain, severe (8-10) Last Admin: 05/12/18 22:40 Dose: 0.5 mg Sodium Chloride (Sodium Chloride 0.9%) 1,000 mls @ 100 mls/hr IV .Q10H [facility] Last Admin: 05/15/18 07:30 Dose: Not Given Amikacin Sulfate 500 mg/ (Sodium Chloride) 252 mls @ 250 mls/hr IVPB Q24H [facility]; Protocol Last Admin: 05/14/18 22:15 Dose: 250 mls/hr Cefepime HCl 1 gm/ Sodium (Chloride) 50 mls @ 100 mls/hr IVPB Q12H [facility]; Protocol Last Admin: 05/15/18 10:51 Dose: 100 mls/hr Metronidazole (Flagyl) 500 mg in 100 mls @ 100 mls/hr IVPB Q8H [facility]; Protocol Last Admin: 05/15/18 06:32 Dose: 100 mls/hr Insulin Aspart (Novolog) 8 unit SC TID [facility] Insulin Glargine (Lantus) 20 unit SC HS [facility] Last Admin: 05/14/18 21:43 Dose: 20 units Insulin Human Regular (Novolin R) 0 unit SC ACHS [facility]; Protocol Last Admin: 05/15/18 12:06 Dose: 6 units Lisinopril (Zestril) 10 mg PO DAILY [facility] Last Admin: 05/15/18 09:23 Dose: 10 mg Metoclopramide HCl (Reglan) 10 mg IVP Q8 [facility] Last Admin: 05/15/18 05:19 Dose: 10 mg Pantoprazole Sodium (Protonix Ec Tab) 40 mg PO DAILY [facility] Last Admin: 05/15/18 09:23 Dose: 40 mg Sitagliptin Phosphate (Januvia) 50 mg PO DAILY [facility] Last Admin: 05/15/18 09:23 Dose: 50 mg - Labs Labs: 05/15/18 07:26 05/15/18 07:26 PT 13.9 SECONDS (9.7-12.2) H 05/12/18 13:20 INR 1.3 05/12/18 13:20 APTT 36 SECONDS (21-34) H 05/12/18 13:20
[2018-05-15] MEDS: (Novolog) Insulin Aspart, Recombinant 100 u/ml 10 ml vial SC SCH ×2 (13:36→19:25)
[2018-05-15] MEDS ORDERED: Sodium Chloride 0.9% 1,000 ML IV ONE (15:49)
--- NOTE | 2018-05-15 22:57 | CP.PCM.PN ---
Subjective - Date & Time of Evaluation Date of Evaluation: 05/15/18 Time of Evaluation: 22:57 - Subjective Subjective: TEMPERATURE 99.1 TACHYCARDIAC. STATES ABDOMINAL PAIN BETTER, AMBULATING TO BATHROOM. INCONTINANT OF URINE LABS REVIEWED; WBC 15.6 IMPROVING BS > 500 Objective - Vital Signs/Intake and Output Vital Signs (last 24 hours): Temp Pulse Resp BP Pulse Ox 99.1 F 118 H 20 176/87 H 95 05/15/18 15:00 05/15/18 16:25 05/15/18 15:00 05/15/18 15:00 05/15/18 15:00 Intake and Output: 05/15/18 05/16/18 18:59 06:59 Intake Total 1250 Balance 1250 - Medications Medications: Current Medications Acetaminophen (Tylenol 325mg Tab) 650 mg PO Q4 PRN PRN Reason: Fever >100.4 F Last Admin: 05/14/18 20:22 Dose: 650 mg Docusate Sodium (Colace) 100 mg PO DAILY [facility] Last Admin: 05/15/18 09:24 Dose: 100 mg Enoxaparin Sodium (Lovenox) 30 mg SC DAILY [facility] Last Admin: 05/15/18 09:23 Dose: 30 mg Hydralazine HCl (Apresoline) 25 mg PO TID [facility] Last Admin: 05/15/18 19:24 Dose: 25 mg Hydromorphone HCl (Dilaudid) 0.5 mg IVP Q6H PRN PRN Reason: Pain, severe (8-10) Last Admin: 05/12/18 22:40 Dose: 0.5 mg Sodium Chloride (Sodium Chloride 0.9%) 1,000 mls @ 100 mls/hr IV .Q10H [facility] Last Admin: 05/15/18 19:26 Dose: 100 mls/hr Amikacin Sulfate 500 mg/ (Sodium Chloride) 252 mls @ 250 mls/hr IVPB Q24H [facility]; Protocol Last Admin: 05/14/18 22:15 Dose: 250 mls/hr Cefepime HCl 1 gm/ Sodium (Chloride) 50 mls @ 100 mls/hr IVPB Q12H [facility]; Protocol Last Admin: 05/15/18 10:51 Dose: 100 mls/hr Metronidazole (Flagyl) 500 mg in 100 mls @ 100 mls/hr IVPB Q8H [facility]; Protocol Last Admin: 05/15/18 14:32 Dose: 100 mls/hr Insulin Aspart (Novolog) 8 unit SC TIDAC [facility] Last Admin: 05/15/18 19:25 Dose: 8 units Insulin Glargine (Lantus) 20 unit SC HS [facility] Last Admin: 05/14/18 21:43 Dose: 20 units Insulin Human Regular (Novolin R) 0 unit SC ACHS [facility]; Protocol Last Admin: 05/15/18 19:25 Dose: 6 units Lisinopril (Zestril) 10 mg PO DAILY [facility] Last Admin: 05/15/18 09:23 Dose: 10 mg Metoclopramide HCl (Reglan) 10 mg IVP Q8 [facility] Last Admin: 05/15/18 13:36 Dose: 10 mg Pantoprazole Sodium (Protonix Ec Tab) 40 mg PO DAILY [facility] Last Admin: 05/15/18 09:23 Dose: 40 mg Sitagliptin Phosphate (Januvia) 50 mg PO DAILY [facility] Last Admin: 05/15/18 09:23 Dose: 50 mg - Labs Labs: 05/15/18 07:26 05/15/18 07:26 PT 13.9 SECONDS (9.7-12.2) H 05/12/18 13:20 INR 1.3 05/12/18 13:20 APTT 36 SECONDS (21-34) H 05/12/18 13:20 - Constitutional Appears: No Acute Distress, Cachectic, Chronically Ill - Head Exam Head Exam: NORMAL INSPECTION - Eye Exam Eye Exam: EOMI, PERRL - ENT Exam ENT Exam: Normal Oropharynx - Neck Exam Neck Exam: Normal Inspection - Cardiovascular Exam Cardiovascular Exam: Tachycardia, REGULAR RHYTHM, +S1, +S2 - GI/Abdominal Exam GI & Abdominal Exam: Soft, Tenderness (DIFFUSE), Hypoactive Bowel Sounds. absent: Distended - Extremities Exam Extremities Exam: Normal Capillary Refill. absent: Calf Tenderness, Pedal Edema - Neurological Exam Neurological Exam: Awake, CN II-XII Intact, Normal Gait, Oriented x3 - Psychiatric Exam Psychiatric exam: Normal Mood - Skin Skin Exam: Normal Color, Warm Assessment and Plan (1) Abdominal pain Status: Acute (2) Gram negative sepsis Status: Acute (3) UTI (urinary tract infection) Status: Acute (4) Diabetes mellitus Status: Acute (5) Constipation Status: Acute - Assessment and Plan (Free Text) Plan: PLAN; CONTINUE IV CEFEPIME 1GM IVPB Q 12HRLY 05/14/18 PT GOT I DOSE IV AMIKACIN 500MG IVPB STAT 05/14/18. CONTINUE IV FLAGYL 500MG IVPB Q 8HRLY 05/14/18. PER SURGERY . PT FOR GI SERIES PER CONSULTANTS
[2018-05-15] MEDS: (Lantus) Insulin Glargine, Recombinant SC SCH (23:00)
[2018-05-16] MEDS: metroNIDAZOLE IV 500 mg/100 ml 500 MG/100 ML BAG IVPB SCH ×4 (00:30→22:55)
[2018-05-16] MEDS: Sodium Chloride 0.9% 1,000 ML IV SCH ×2 (01:23→03:15)
[2018-05-16] MEDS ORDERED: Albuterol-Ipratrop 3 mg / 0.5 (3 ml) UD INH STA (03:29)
[2018-05-16] MEDS: Cefepime 1 GM in Sodium Chloride 0.9% 100 ML IVPB SCH ×2 (04:30→16:11)
--- NOTE | 2018-05-16 05:57 | CON ---
DATE: 05/15/2018 CARDIOLOGY CONSULTATION REASON FOR CONSULTATION: Pericardial effusion with evidence of tamponade. HISTORY OF PRESENT ILLNESS: The patient is a 67-year-old -Chinese female who has a history of abdominal surgery many years ago for intestinal obstruction, presented because of generalized weakness. The patient also experienced abdominal discomfort in the left lower quadrant. The patient stated that a few months ago, she underwent upper and lower endoscopy, but she is unaware of the findings. The patient is unaware of any prior cardiac history. SOCIAL HISTORY: The patient is a former smoker. She is nondrinker. She lives by herself, but she has family members living nearby. CURRENT MEDICATIONS: Amikacin 500 mg intravenously daily, hydralazine 25 mg t.i.d., cefepime 1 g intravenously every 12 hours, Colace 100 mg once a day, Flagyl 500 mg intravenously every 8 hours, Januvia 50 mg daily, Lantus insulin 15 units subcutaneously at bedtime, Lovenox 30 mg subcutaneously daily, Zestril 10 mg once a day, Reglan 10 mg intravenously every 8 hours. REVIEW OF SYSTEMS: The patient did report fever and chills as well as abdominal pain, nausea, and vomiting. The patient denies any retrosternal chest pain. PHYSICAL EXAMINATION: GENERAL: The patient is an elderly female who does not appear to be in acute distress. VITAL SIGNS: Blood pressure 167/87, heart rate 114, temperature 99.6, and respirations 20. HEENT: Normocephalic. CHEST: Clear. HEART: S1 and S2, regular. No gallop. No pericardial rub. ABDOMEN: Mildly distended. EXTREMITIES: No edema. LABORATORY DATA: Today's SMA-7: Sodium 132, potassium 3.9, chloride 100, CO2 of 27, glucose of 366, BUN 18, and creatinine 1.2. ProBNP is 2280. Today's hemoglobin and hematocrit are 11.6 and 35.9, white count 15.6, and platelet count 287,000. Influenza type A and B serology was negative. Abdomen and pelvis CT scan without contrast was a limited study because of lack of contrast. Subcutaneous edema and mesenteric edema are noted, and anasarca stage suggested free fluid in the cul-de-sac noted, bilateral pleural effusion and pericardial effusion. The pericardial effusion appears moderate. The chronicity of the pericardial effusion is unknown. Postsurgical changes; the details of which are unclear. Anastomosis involving the small bowel loops, which may appear somewhat dilated with prominent air-fluid levels, and partial obstruction of the distal small bowel without gross transitional point appreciated is a consideration. EKG revealed sinus rhythm at the rate of 98. Echocardiography study, official report was consistent with small circumferential pericardial effusion with echocardiographic indication for cardiac tamponade. There is an evidence of diastolic compression of the right atrium. Normal ejection fraction. I did review the echocardiography study and agree with the findings. Blood culture and urine culture are positive for E. coli. Chest x-ray was unremarkable. ASSESSMENT: 1. Urosepsis with Escherichia coli. 2. Small pericardial effusion with evidence of diastolic compression of the right atrium, which does not seem to be a very impressive on the echocardiography study. 3. Improved small bowel obstruction. 4. Uncontrolled diabetes mellitus. RECOMMENDATIONS: Continue current IV amikacin 500 mg daily, IV cefepime at 1 g daily, IV Flagyl 500 mg every 8 hours. Continue subcutaneous Lovenox at 30 mg once a day and Zestril 10 mg once a day. Start intravenous hydration with normal saline at 60 mL an hour. I will repeat echocardiography study tomorrow, which means four days after the initial study to follow up on any progression of the pericardial effusion and the diastolic compression of the right atrium. In the meantime, I will request a thoracic surgical consultation. Royal Ernandez MD
[2018-05-16] MEDS: (Novolog) Insulin Aspart, Recombinant 100 u/ml 10 ml vial SC SCH ×3 (08:46→18:03)
[2018-05-16] MEDS: (Novolin R) Insulin Human Regular 100 units/ml vial SC SCH ×4 (08:46→22:35)
[2018-05-16] MEDS: Pantoprazole 40 mg EC Tab PO SCH (10:19)
[2018-05-16] MEDS: Enoxaparin 30 mg Syringe SC SCH (10:20)
--- NOTE | 2018-05-16 13:25 | PN ---
DATE: 05/16/2018 LOCATION: 662, bed B. SUBJECTIVE: This is a 67-year-old female seen initially for GI consultation on 05/15/2018, reexamined again today with persistent complaint of midepigastric pain with nausea and dyspepsia with recently reported change of bowel movement habit with less oral intake. The entire chart is reviewed including but not limited to most recent lab and radiology study results, current and the previous medication list. CAT scan of the abdomen and pelvis initially was done, report is seen. The patient denies any actual chest pain, palpitation, significant shortness of breath this morning, but with less oral intake with elevated blood glucose level again. Cardiology evaluation by Dr. Ernandez was performed, report is seen. LABORATORY DATA: Today's lab results showed blood glucose level of 161. Rest of the lab results still pending. However, the patient still has low albumin, low total protein with low calcium, mildly elevated BUN but normal creatinine with leukocytosis of 15.6 PHYSICAL EXAMINATION: GENERAL: This is a 67-year-old female appeared to be awake, alert and oriented, afebrile with pulse of 100, respiratory rate 20-22, blood pressure 150/72. HEENT: Pale dry oral mucous membranes. Nonicteric sclerae. LUNGS: Few scattered crepitation. Decreased air entry at bases. HEART: Positive S1 and S2 with increased rate. ABDOMEN: Soft with midepigastric tenderness. No mass or organomegaly. No rebound tenderness or guarding. RECTAL: Examination, the patient refused. EXTREMITIES: Without significant clubbing, cyanosis or edema. NEUROLOGIC: No reported new neurological deficits, sensory or motor. IMPRESSION: 1. Re-exacerbation of peptic ulcer disease. 2. Recently reported intermittent partial small bowel obstruction versus an ileus, improving gradually. 3. Urosepsis, by recent history with Escherichia coli, improving clinically. 4. Recently reported small pericardial effusion. 5. Re-exacerbation of peptic ulcer disease without gastric versus duodenal ulcer. 6. Malnutrition with hypoalbuminemia, hypoproteinemia. 7. Known history of hypertension. SUGGESTIONS: 1. Continue current management. 2. Proton pump inhibitors IV. 3. Zofran IV versus Reglan. 4. The patient for upper endoscopy when she is more stable clinically. 5 . Further recommendation to follow. Rolanda Arteaga MD
--- NOTE | 2018-05-16 18:56 | CARD ---
APPROVED REPORT Date of service: 05/16/2018 EXAM: Two-dimensional and M-mode echocardiogram with Doppler and color Doppler. Other Information Quality : GoodRhythm : INDICATION FOLOW UP FOR TAMPONADE PREVIOUS ECHO DONE ON 05/13/18 LEFT VENTRICLE The left ventricle is normal size. There is mild concentric left ventricular hypertrophy.. The left ventricular function is normal. The left ventricular ejection fraction is within the 70% visually. No regional wall motion abnormalities noted. Transmitral Doppler flow pattern is Grade I-abnormal relaxation pattern. No left ventricle thrombus noted on this study. There is no ventricular septal defect visualized. There is no left ventricular aneurysm. There is no mass noted in the left ventricle. RIGHT VENTRICLE The right ventricle is normal size. There is normal right ventricular wall thickness. The right ventricular systolic function is normal. ATRIA The left atrium size is normal. The right atrium size is normal. The interatrial septum is intact with no evidence for an atrial septal defect. AORTIC VALVE The aortic valve is normal in structure and function. No aortic regurgitation is present. There is no aortic valvular stenosis. There is no aortic valvular vegetation. MITRAL VALVE The mitral valve is normal in structure and function. There is no evidence of mitral valve prolapse. There is no mitral valve stenosis. There is no mitral valve regurgitation noted. TRICUSPID VALVE The tricuspid valve is normal in structure and function. There is no tricuspid valve regurgitation noted. There is no tricuspid valve prolapse or vegetation. There is no tricuspid valve stenosis. PULMONIC VALVE The pulmonary valve is normal in structure and function. There is no pulmonic valvular regurgitation. There is no pulmonic valvular stenosis. GREAT VESSELS The aortic root is normal in size. The ascending aorta is normal in size. The pulmonary artery is normal. The IVC is normal in size and collapses >50% with inspiration. PERICARDIAL EFFUSION The pericardium appears normal. A very small pleural effusion is noted, with only mininal RA collapse. No respiratory variation in LV outflow velocity. <Conclusion> The left ventricular function is normal. There is mild concentric left ventricular hypertrophy.. Transmitral Doppler flow pattern is Grade I-abnormal relaxation pattern. A very small pleural effusion is noted, with only mininal RA collapse. No respiratory variation in LV outflow velocity. Normal Doppler.
--- NOTE | 2018-05-16 19:24 | PN ---
DATE: 05/16/2018 SUBJECTIVE: The patient denies any chest pain. Shortness of breath has improved. She is tolerating regular diet. PHYSICAL EXAMINATION: VITAL SIGNS: Blood pressure 159/74, heart rate 103, temperature 99.1, and respirations 20. HEENT: Normocephalic. CHEST: Minimal rhonchi. HEART: S1 and S2 regular. EXTREMITIES: No edema. LABORATORY DATA: Today's blood sugar is 161. ASSESSMENT: 1. Status post small bowel obstruction. 2. Small pericardial effusion with evidence of diastolic compression of the right atrium. 3. Uncontrolled diabetes mellitus. 4. Escherichia coli bacteremia. RECOMMENDATIONS: Continue IV amikacin at 500 mg t.i.d., continue hydralazine 25 mg t.i.d., IV cefepime at 1 g every 12 hours, IV Flagyl 500 mg every 8 hours, Lovenox 30 mg subcutaneously daily, and Zestril 10 mg once a day. I would review the followup echocardiographic study performed today. Royal Ernandez MD
[2018-05-16] MEDS ORDERED: Dextrose 50% SYRINGE Inj (50 ml) ONE (21:59)
[2018-05-16] MEDS: Amikacin Sulfate 500 MG in Sodium Chloride 0.9% 250 ML IVPB SCH (22:21)
[2018-05-16] MEDS: Petrolatum Oint Foilpak (5 gm) TOP SCH (22:23)
[2018-05-16] MEDS: (Lantus) Insulin Glargine, Recombinant SC SCH (22:29)
--- NOTE | 2018-05-16 23:47 | CP.PCM.PN ---
Subjective - Date & Time of Evaluation Date of Evaluation: 05/16/18 Time of Evaluation: 23:47 - Subjective Subjective: TEMPERATURE 99.0 TACHYCARDIAC. VSS STATES ABDOMINAL PAIN BETTER, BS LOW -41-45 EATING A HAMBURGER Objective - Vital Signs/Intake and Output Vital Signs (last 24 hours): Temp Pulse Resp BP Pulse Ox 99 F 70 20 156/71 H 100 05/16/18 15:00 05/16/18 18:30 05/16/18 15:00 05/16/18 15:00 05/16/18 15:00 - Medications Medications: Current Medications Acetaminophen (Tylenol 325mg Tab) 650 mg PO Q4 PRN PRN Reason: Fever >100.4 F Last Admin: 05/14/18 20:22 Dose: 650 mg Docusate Sodium (Colace) 100 mg PO DAILY [facility] Last Admin: 05/16/18 10:19 Dose: 100 mg Emollient Ointment (Vaseline Oint) 5 gm TOP QID [facility] Last Admin: 05/16/18 22:23 Dose: 5 gm Enoxaparin Sodium (Lovenox) 30 mg SC DAILY [facility] Last Admin: 05/16/18 10:20 Dose: 30 mg Hydralazine HCl (Apresoline) 25 mg PO TID [facility] Last Admin: 05/16/18 18:04 Dose: 25 mg Amikacin Sulfate 500 mg/ (Sodium Chloride) 252 mls @ 250 mls/hr IVPB Q24H [facility]; Protocol Last Admin: 05/16/18 22:21 Dose: 250 mls/hr Metronidazole (Flagyl) 500 mg in 100 mls @ 100 mls/hr IVPB Q8H [facility]; Protocol Last Admin: 05/16/18 22:55 Dose: 100 mls/hr Cefepime HCl 1 gm/ Sodium (Chloride) 100 mls @ 100 mls/hr IVPB Q12H [facility]; Protocol Last Admin: 05/16/18 16:11 Dose: 100 mls/hr Insulin Glargine (Lantus) 20 unit SC [facility] Last Admin: 05/16/18 22:29 Dose: Not Given Insulin Human Regular (Novolin R) 0 unit SC ACHS [facility]; Protocol Last Admin: 05/16/18 22:35 Dose: Not Given Lisinopril (Zestril) 10 mg PO DAILY [facility] Last Admin: 05/16/18 10:19 Dose: 10 mg Metoclopramide HCl (Reglan) 10 mg IVP Q8 [facility] Last Admin: 05/16/18 22:21 Dose: 10 mg Pantoprazole Sodium (Protonix Ec Tab) 40 mg PO DAILY [facility] Last Admin: 05/16/18 10:19 Dose: 40 mg Sitagliptin Phosphate (Januvia) 50 mg PO DAILY [facility] Last Admin: 05/16/18 10:19 Dose: 50 mg - Labs Labs: 05/15/18 07:26 05/15/18 07:26 PT 13.9 SECONDS (9.7-12.2) H 05/12/18 13:20 INR 1.3 05/12/18 13:20 APTT 36 SECONDS (21-34) H 05/12/18 13:20 - Constitutional Appears: No Acute Distress, Cachectic, Chronically Ill - Head Exam Head Exam: NORMAL INSPECTION - Eye Exam Eye Exam: EOMI, PERRL - ENT Exam ENT Exam: Normal Oropharynx - Neck Exam Neck Exam: Normal Inspection - Respiratory Exam Respiratory Exam: Decreased Breath Sounds, NORMAL BREATHING PATTERN - Cardiovascular Exam Cardiovascular Exam: Tachycardia, REGULAR RHYTHM, +S1, +S2 - GI/Abdominal Exam GI & Abdominal Exam: Soft, Hypoactive Bowel Sounds. absent: Tenderness - Extremities Exam Extremities Exam: Normal Capillary Refill. absent: Calf Tenderness, Pedal Edema - Neurological Exam Neurological Exam: Alert, Awake, CN II-XII Intact, Normal Gait, Oriented x3 - Psychiatric Exam Psychiatric exam: Normal Mood - Skin Skin Exam: Normal Color, Warm Assessment and Plan (1) Abdominal pain Status: Acute (2) Gram negative sepsis Status: Acute (3) UTI (urinary tract infection) Status: Acute (4) Diabetes mellitus Status: Acute (5) Constipation Status: Acute - Assessment and Plan (Free Text) Plan: PLAN; CONTINUE IV CEFEPIME 1GM IVPB Q 12HRLY 05/14/18 PT GOT I DOSE IV AMIKACIN 500MG IVPB STAT 05/14/18. CONTINUE IV FLAGYL 500MG IVPB Q 8HRLY 05/14/18. PER SURGERY . PT FOR GI SERIES PER CONSULTANTS
[2018-05-17] MEDS: Cefepime 1 GM in Sodium Chloride 0.9% 100 ML IVPB SCH ×2 (03:10→18:21)
--- NOTE | 2018-05-17 04:38 | CP.PCM.PN ---
Subjective - Date & Time of Evaluation Date of Evaluation: 05/16/18 Time of Evaluation: 12:10 - Subjective Subjective: dictated Objective - Vital Signs/Intake and Output Vital Signs (last 24 hours): Temp Pulse Resp BP Pulse Ox 98.4 F 114 H 20 170/82 H 98 05/16/18 23:05 05/16/18 23:30 05/16/18 23:05 05/16/18 23:05 05/16/18 23:05 - Medications Medications: Current Medications Acetaminophen (Tylenol 325mg Tab) 650 mg PO Q4 PRN PRN Reason: Fever >100.4 F Last Admin: 05/14/18 20:22 Dose: 650 mg Docusate Sodium (Colace) 100 mg PO DAILY [facility] Last Admin: 05/16/18 10:19 Dose: 100 mg Emollient Ointment (Vaseline Oint) 5 gm TOP QID [facility] Last Admin: 05/16/18 22:23 Dose: 5 gm Enoxaparin Sodium (Lovenox) 30 mg SC DAILY [facility] Last Admin: 05/16/18 10:20 Dose: 30 mg Hydralazine HCl (Apresoline) 25 mg PO TID [facility] Last Admin: 05/16/18 18:04 Dose: 25 mg Amikacin Sulfate 500 mg/ (Sodium Chloride) 252 mls @ 250 mls/hr IVPB Q24H [facility]; Protocol Last Admin: 05/16/18 22:21 Dose: 250 mls/hr Metronidazole (Flagyl) 500 mg in 100 mls @ 100 mls/hr IVPB Q8H [facility]; Protocol Last Admin: 05/16/18 22:55 Dose: 100 mls/hr Cefepime HCl 1 gm/ Sodium (Chloride) 100 mls @ 100 mls/hr IVPB Q12H [facility]; Protocol Last Admin: 05/17/18 03:10 Dose: 100 mls/hr Insulin Glargine (Lantus) 20 unit SC HS [facility] Last Admin: 05/16/18 22:29 Dose: Not Given Insulin Human Regular (Novolin R) 0 unit SC ACHS [facility]; Protocol Last Admin: 05/16/18 22:35 Dose: Not Given Lisinopril (Zestril) 10 mg PO DAILY [facility] Last Admin: 05/16/18 10:19 Dose: 10 mg Metoclopramide HCl (Reglan) 10 mg IVP Q8 [facility] Last Admin: 05/16/18 22:21 Dose: 10 mg Pantoprazole Sodium (Protonix Ec Tab) 40 mg PO DAILY [facility] Last Admin: 05/16/18 10:19 Dose: 40 mg Sitagliptin Phosphate (Januvia) 50 mg PO DAILY [facility] Last Admin: 05/16/18 10:19 Dose: 50 mg - Labs Labs: 05/15/18 07:26 05/15/18 07:26 PT 13.9 SECONDS (9.7-12.2) H 05/12/18 13:20 INR 1.3 05/12/18 13:20 APTT 36 SECONDS (21-34) H 05/12/18 13:20
[2018-05-17] MEDS: metroNIDAZOLE IV 500 mg/100 ml 500 MG/100 ML BAG IVPB SCH ×3 (07:40→22:29)
[2018-05-17] MEDS: (Novolin R) Insulin Human Regular 100 units/ml vial SC SCH ×4 (07:41→22:01)
--- NOTE | 2018-05-17 08:53 | PN ---
DATE: 05/17/2018 SUBJECTIVE: The patient, Abraham, had an episode of hypoglycemia. I discontinued her short-acting insulin. In the meantime, the patient is afebrile. She has bowel movement. Her urine cultures are positive, and she is on antibiotics. Her appetite is fair. PHYSICAL EXAMINATION: VITAL SIGNS: Blood pressure 138/72, pulse 74, respiratory rate 17, temperature 98. LUNGS: Clear. CARDIOVASCULAR SYSTEM: S1 and S2, regular. ABDOMEN: Soft, nontender. Bowel sounds are positive. ASSESSMENT: 1. Status post intestinal obstruction relief. 2. Hypertension. 3. Hypoglycemia. 4. Type 2 diabetes. PLAN: Discontinue insulin. Continue antibiotics per Infectious Disease. Monitor the patient. Saroj Rendon MD
--- NOTE | 2018-05-17 09:27 | PN ---
DATE: 05/17/2018 LOCATION: 662, bed B. SUBJECTIVE: This 67-year-old female seen and examined in rounds with recurrent but severe abdominal pain, postprandial abdominal distention with alternation of her blood glucose level. No reported active bleeding, chest pain or palpitation; and no reported active GI bleeding. The patient somewhat tolerated oral intake with postprandial abdominal distention on and off. The entire chart is reviewed including but not limited to the most recent lab and radiology study results, current and previous medication list, current and previous medical events. Today's lab results showed blood glucose level of 193. Rest of the lab results still pending. PHYSICAL EXAMINATION: GENERAL: A 67-year-old female. VITAL SIGNS: Afebrile with pulse of 102, respiratory rate 20-22, blood pressure 166/80. HEENT: Showed pale dry oral mucous membrane. Nonicteric sclerae. LUNGS: Few scattered crepitation. Decreased air entry at bases. HEART: Positive S1 and S2. ABDOMEN: Soft. Bowel sounds are present. No mass or organomegaly. No rebound tenderness or guarding, but midepigastric and midabdominal line tenderness. EXTREMITIES: Without significant edema, clubbing or cyanosis. No reported new neurological deficits, sensory or motor. IMPRESSION: 1. Re-exacerbation of peptic ulcer disease, rule out gastric versus duodenal ulcer. 2. Reported gram-negative septicemia, with urinary tract infection, on intravenous antibiotics. 3. Poorly controlled diabetes mellitus. 4. Change of bowel movement, mainly constipation of unclear etiology. 5. Reported before intermittent partial bowel obstruction versus an ileus, improving clinically. 6. Recently reported small pericardial effusion seen by the it security consultant, malnutrition with hypoproteinemia, hypoalbuminemia. 7. Known history of hypertension. SUGGESTIONS: 1. Continue current management. 2. The patient for upper endoscopy at a.m. 3. Further recommendation to follow. Rolanda Arteaga MD
--- NOTE | 2018-05-17 10:07 | CP.PCM.PN ---
Subjective - Date & Time of Evaluation Date of Evaluation: 05/17/18 Time of Evaluation: 10:05 - Subjective Subjective: General Surgery Dr. Wise Pt seen and examined @bedside. No acute events overnight. Pt c/o new urinary incontinence, however admits to complete resolution of abd pain. Pt denies F/C, N/V, D/C. tolerating diet. (+)BM/Flatus Objective - Vital Signs/Intake and Output Vital Signs (last 24 hours): Temp Pulse Resp BP Pulse Ox 97.9 F 99 H 20 156/104 H 100 05/17/18 07:05 05/17/18 07:05 05/17/18 07:05 05/17/18 07:05 05/17/18 07:05 - Medications Medications: Current Medications Acetaminophen (Tylenol 325mg Tab) 650 mg PO Q4 PRN PRN Reason: Fever >100.4 F Last Admin: 05/14/18 20:22 Dose: 650 mg Docusate Sodium (Colace) 100 mg PO DAILY [facility] Last Admin: 05/16/18 10:19 Dose: 100 mg Emollient Ointment (Vaseline Oint) 5 gm TOP QID [facility] Last Admin: 05/16/18 22:23 Dose: 5 gm Enoxaparin Sodium (Lovenox) 30 mg SC DAILY [facility] Last Admin: 05/16/18 10:20 Dose: 30 mg Hydralazine HCl (Apresoline) 25 mg PO TID [facility] Last Admin: 05/16/18 18:04 Dose: 25 mg Amikacin Sulfate 500 mg/ (Sodium Chloride) 252 mls @ 250 mls/hr IVPB Q24H [facility]; Protocol Last Admin: 05/16/18 22:21 Dose: 250 mls/hr Metronidazole (Flagyl) 500 mg in 100 mls @ 100 mls/hr IVPB Q8H [facility]; Protocol Last Admin: 05/17/18 07:40 Dose: 100 mls/hr Cefepime HCl 1 gm/ Sodium (Chloride) 100 mls @ 100 mls/hr IVPB Q12H [facility]; Protocol Last Admin: 05/17/18 03:10 Dose: 100 mls/hr Insulin Glargine (Lantus) 20 unit SC [facility] Last Admin: 05/16/18 22:29 Dose: Not Given Insulin Human Regular (Novolin R) 0 unit SC [facility]; Protocol Last Admin: 05/17/18 07:41 Dose: 1 units Lisinopril (Zestril) 10 mg PO DAILY [facility] Last Admin: 05/16/18 10:19 Dose: 10 mg Metoclopramide HCl (Reglan) 10 mg IVP Q8 [facility] Last Admin: 05/17/18 06:52 Dose: 10 mg Pantoprazole Sodium (Protonix Ec Tab) 40 mg PO DAILY [facility] Last Admin: 05/16/18 10:19 Dose: 40 mg Sitagliptin Phosphate (Januvia) 50 mg PO DAILY [facility] Last Admin: 05/16/18 10:19 Dose: 50 mg - Labs Labs: 05/15/18 07:26 05/15/18 07:26 PT 13.9 SECONDS (9.7-12.2) H 05/12/18 13:20 INR 1.3 05/12/18 13:20 APTT 36 SECONDS (21-34) H 05/12/18 13:20 - Constitutional Appears: Non-toxic, Toxic - Head Exam Head Exam: NORMAL INSPECTION - Eye Exam Eye Exam: Normal appearance - ENT Exam ENT Exam: Mucous Membranes Moist - Respiratory Exam Respiratory Exam: NORMAL BREATHING PATTERN. absent: Accessory Muscle Use, Respiratory Distress - Cardiovascular Exam Cardiovascular Exam: REGULAR RHYTHM. absent: Bradycardia, Tachycardia - GI/Abdominal Exam GI & Abdominal Exam: Soft. absent: Distended, Firm, Guarding, Rigid, Tenderness - Extremities Exam Extremities Exam: Normal Inspection - Neurological Exam Neurological Exam: Alert, Awake, Oriented x3 - Psychiatric Exam Psychiatric exam: Normal Affect, Normal Mood - Skin Skin Exam: Dry, Intact, Normal Color, Warm Assessment and Plan - Assessment and Plan (Free Text) Assessment: 67 y/o F w/ resolved abd pain Plan: - ADAT - monitor bowel fxn - f/u GI recs - No surgical intervention at this time. - please re-consult if needed Pt discussed w/ Dr. Billie Foster PGY3
--- NOTE | 2018-05-17 10:09 | CP.PCM.CON ---
History of Present Illness - History of Present Illness History of Present Illness: CT Surgery Dr. Wilkes Reason: Pericardial effusion 67 y/o F presented to the ED on 05/12/18 c/o abd pain that began on 05/09. Pt underwent Echo on admission (05/12/18) that revealed pericardial effusion, concerning for tamponade. Surgery was consulted on 05/15/18 and repeat Echo ordered, which showed small pericardial effusion w/ minimal RA collapse. Pt has no complaints this AM aside from urinary incontinence. Pt denies F/C, CP, SOB, N/V, abd pain, D/C. tolerating diet. (+)BM/Flatus PMHx: CAD, DM Meds: reviewed in chart NKDA PSHx: Ex-lap bowel resection for "twisting of bowel", SHx: denies tobacco, alcohol, and illicit drug use FHx: noncontributory Review of Systems - Review of Systems All systems: reviewed and no additional remarkable complaints except (see HPI) Past Patient History - Past Medical History & Family History Past Medical History?: Yes - Past Social History Smoking Status: Former Smoker - CARDIAC Hx Hypertension: Yes - PULMONARY Hx Respiratory Disorders: No - NEUROLOGICAL Hx Neurological Disorder: No - HEENT Hx HEENT Problems: No - RENAL Hx Chronic Kidney Disease: No - ENDOCRINE/METABOLIC Hx Diabetes Mellitus Type 2: Yes - HEMATOLOGICAL/ONCOLOGICAL Hx Blood Disorders: No - INTEGUMENTARY Hx Dermatological Problems: No - MUSCULOSKELETAL/RHEUMATOLOGICAL Hx Musculoskeletal Disorders: No Hx Falls: Yes - GASTROINTESTINAL Hx Nausea: Yes Other/Comment: unknown abd surgey - GENITOURINARY/GYNECOLOGICAL Hx Genitourinary Disorders: No - PSYCHIATRIC Hx Substance Use: No - SURGICAL HISTORY Other/Comment: unknown abd surgery - ANESTHESIA Hx Anesthesia: Yes Hx Anesthesia Reactions: No Hx Malignant Hyperthermia: No Meds Allergies/Adverse Reactions: Allergies Allergy/AdvReac Type Severity Reaction Status Date / Time No Known Allergies Allergy Unverified 05/12/18 11:28 - Medications Medications: Current Medications Acetaminophen (Tylenol 325mg Tab) 650 mg PO Q4 PRN PRN Reason: Fever >100.4 F Last Admin: 05/14/18 20:22 Dose: 650 mg Docusate Sodium (Colace) 100 mg PO DAILY [facility] Last Admin: 05/16/18 10:19 Dose: 100 mg Emollient Ointment (Vaseline Oint) 5 gm TOP QID [facility] Last Admin: 05/16/18 22:23 Dose: 5 gm Enoxaparin Sodium (Lovenox) 30 mg SC DAILY [facility] Last Admin: 05/16/18 10:20 Dose: 30 mg Hydralazine HCl (Apresoline) 25 mg PO TID [facility] Last Admin: 05/16/18 18:04 Dose: 25 mg Amikacin Sulfate 500 mg/ (Sodium Chloride) 252 mls @ 250 mls/hr IVPB Q24H [facility]; Protocol Last Admin: 05/16/18 22:21 Dose: 250 mls/hr Metronidazole (Flagyl) 500 mg in 100 mls @ 100 mls/hr IVPB Q8H [facility]; Protocol Last Admin: 05/17/18 07:40 Dose: 100 mls/hr Cefepime HCl 1 gm/ Sodium (Chloride) 100 mls @ 100 mls/hr IVPB Q12H [facility]; Protocol Last Admin: 05/17/18 03:10 Dose: 100 mls/hr Insulin Glargine (Lantus) 20 unit SC [facility] Last Admin: 05/16/18 22:29 Dose: Not Given Insulin Human Regular (Novolin R) 0 unit SC ACHS [facility]; Protocol Last Admin: 05/17/18 07:41 Dose: 1 units Lisinopril (Zestril) 10 mg PO DAILY [facility] Last Admin: 05/16/18 10:19 Dose: 10 mg Metoclopramide HCl (Reglan) 10 mg IVP Q8 [facility] Last Admin: 05/17/18 06:52 Dose: 10 mg Pantoprazole Sodium (Protonix Ec Tab) 40 mg PO DAILY [facility] Last Admin: 05/16/18 10:19 Dose: 40 mg Sitagliptin Phosphate (Januvia) 50 mg PO DAILY [facility] Last Admin: 05/16/18 10:19 Dose: 50 mg Physical Exam - Constitutional Appears: Non-toxic, No Acute Distress - Head Exam Head Exam: NORMAL INSPECTION - Eye Exam Eye Exam: Normal appearance - ENT Exam ENT Exam: Mucous Membranes Moist - Respiratory Exam Respiratory Exam: NORMAL BREATHING PATTERN. absent: Accessory Muscle Use, Respiratory Distress - Cardiovascular Exam Cardiovascular Exam: REGULAR RHYTHM. absent: Bradycardia, Tachycardia - GI/Abdominal Exam GI & Abdominal Exam: Soft. absent: Distended, Tenderness - Extremities Exam Extremities exam: Positive for: normal inspection - Neurological Exam Neurological exam: Alert, Oriented x3 - Psychiatric Exam Psychiatric exam: Normal Affect, Normal Mood - Skin Skin Exam: Dry, Intact, Normal Color, Warm Results - Vital Signs Recent Vital Signs: Last Vital Signs Temp 97.9 F 05/17/18 07:05 Pulse 99 H 05/17/18 07:05 Resp 20 05/17/18 07:05 BP 156/104 H 05/17/18 07:05 Pulse Ox 100 05/17/18 07:05 - Labs Result Diagrams: 05/15/18 07:26 05/15/18 07:26 Labs: Laboratory Results - last 24 hr 05/16/18 05/16/18 05/16/18 17:20 21:47 21:49 POC Glucose (mg/dL) 197 H 41 L 45 L 05/17/18 06:23 POC Glucose (mg/dL) 193 H - Imaging and Cardiology Echo Status: Report reviewed by me Assessment & Plan - Assessment and Plan (Free Text) Assessment: 67 y/o F w/ small pericardial effusion Plan: - monitor vitals - cont medical management - no surgical intervention at this time - please re-consult if needed Pt discussed w/ Dr. Katrin Foster PGY3
[2018-05-17] MEDS: Petrolatum Oint Foilpak (5 gm) TOP SCH ×3 (10:36→21:39)
[2018-05-17] MEDS: Pantoprazole 40 mg EC Tab PO SCH (10:36)
[2018-05-17] MEDS: Enoxaparin 30 mg Syringe SC SCH (10:37)
--- NOTE | 2018-05-17 15:24 | PN ---
DATE: 05/15/2018 SUBJECTIVE: Мария Rosario has fever. The patient had a bowel movement. She is on . The patient also has generalized anasarca in the abdomen on the CAT scan. She is on antibiotics she is being seen by cardiology. No fever, no chills. No nausea, vomiting. She is tolerating diet. PHYSICAL EXAMINATION VITAL SIGNS: Blood pressure is 150/75, pulse 74, respiratory rate , temperature 99. LUNGS: Clear. No rales, no rhonchi. CARDIOVASCULAR SYSTEM: PMI not localized. S1, S2. Regular. ABDOMEN: Diffuse distention. Bowel sounds are present. LABORATORY DATA: Her UA is positive. ASSESSMENT: 1. Intestinal obstruction is improving. She has had bowel movement. She is afebrile. She is on antibiotic. 2. Urinary tract infection on antibiotics, pending culture. 3. Poorly controlled diabetes. I started the patient on premeal insulin. 4. Hypertension. PLAN: Continue antibiotics, Accu-checks, sliding scale sugar control, diet, Gastroenterology and Infectious Disease followup. Monitor the patient. Saroj Rendon MD
--- NOTE | 2018-05-17 20:31 | CP.PCM.CON ---
History of Present Illness - History of Present Illness History of Present Illness: hypoglycemia in uncontrolled IDDM Past Patient History - Past Medical History & Family History Past Medical History?: Yes - Past Social History Smoking Status: Former Smoker - CARDIAC Hx Hypertension: Yes - PULMONARY Hx Respiratory Disorders: No - NEUROLOGICAL Hx Neurological Disorder: No - HEENT Hx HEENT Problems: No - RENAL Hx Chronic Kidney Disease: No - ENDOCRINE/METABOLIC Hx Diabetes Mellitus Type 2: Yes - HEMATOLOGICAL/ONCOLOGICAL Hx Blood Disorders: No - INTEGUMENTARY Hx Dermatological Problems: No - MUSCULOSKELETAL/RHEUMATOLOGICAL Hx Musculoskeletal Disorders: No Hx Falls: Yes - GASTROINTESTINAL Hx Nausea: Yes Other/Comment: unknown abd surgey - GENITOURINARY/GYNECOLOGICAL Hx Genitourinary Disorders: No - PSYCHIATRIC Hx Substance Use: No - SURGICAL HISTORY Other/Comment: unknown abd surgery - ANESTHESIA Hx Anesthesia: Yes Hx Anesthesia Reactions: No Hx Malignant Hyperthermia: No Meds Allergies/Adverse Reactions: Allergies Allergy/AdvReac Type Severity Reaction Status Date / Time No Known Allergies Allergy Unverified 05/12/18 11:28 - Medications Medications: Current Medications Acetaminophen (Tylenol 325mg Tab) 650 mg PO Q4 PRN PRN Reason: Fever >100.4 F Last Admin: 05/14/18 20:22 Dose: 650 mg Docusate Sodium (Colace) 100 mg PO DAILY [facility] Last Admin: 05/17/18 10:36 Dose: 100 mg Emollient Ointment (Vaseline Oint) 5 gm TOP QID [facility] Last Admin: 05/17/18 18:20 Dose: 5 gm Enoxaparin Sodium (Lovenox) 30 mg SC DAILY [facility] Last Admin: 05/17/18 10:37 Dose: 30 mg Hydralazine HCl (Apresoline) 25 mg PO TID [facility] Last Admin: 05/17/18 18:21 Dose: 25 mg Amikacin Sulfate 500 mg/ (Sodium Chloride) 252 mls @ 250 mls/hr IVPB Q24H [facility]; Protocol Last Admin: 05/16/18 22:21 Dose: 250 mls/hr Metronidazole (Flagyl) 500 mg in 100 mls @ 100 mls/hr IVPB Q8H [facility]; Protocol Last Admin: 05/17/18 14:30 Dose: 100 mls/hr Cefepime HCl 1 gm/ Sodium (Chloride) 100 mls @ 100 mls/hr IVPB Q12H [facility]; Protocol Last Admin: 05/17/18 18:21 Dose: 100 mls/hr Insulin Glargine (Lantus) 20 unit SC HS [facility] Last Admin: 05/16/18 22:29 Dose: Not Given Insulin Human Regular (Novolin R) 0 unit SC ACHS [facility]; Protocol Last Admin: 05/17/18 18:21 Dose: 5 units Lisinopril (Zestril) 10 mg PO DAILY [facility] Last Admin: 05/17/18 10:36 Dose: 10 mg Metoclopramide HCl (Reglan) 10 mg IVP Q8 [facility] Last Admin: 05/17/18 14:30 Dose: 10 mg Pantoprazole Sodium (Protonix Ec Tab) 40 mg PO DAILY [facility] Last Admin: 05/17/18 10:36 Dose: 40 mg Sitagliptin Phosphate (Januvia) 50 mg PO DAILY [facility] Last Admin: 05/17/18 10:36 Dose: 50 mg Results - Vital Signs Recent Vital Signs: Last Vital Signs Temp 99.1 F 05/17/18 15:09 Pulse 116 H 05/17/18 16:30 Resp 20 05/17/18 15:09 BP 145/72 05/17/18 15:09 Pulse Ox 94 L 05/17/18 15:09 - Labs Result Diagrams: 05/15/18 07:26 05/15/18 07:26 Labs: Laboratory Results - last 24 hr 05/16/18 05/16/18 05/16/18 06:43 11:25 21:47 POC Glucose (mg/dL) 157 H 249 H 41 L 05/16/18 05/16/18 05/17/18 21:49 22:24 03:21 POC Glucose (mg/dL) 45 L 85 195 H 05/17/18 05/17/18 05/17/18 06:23 11:21 16:51 POC Glucose (mg/dL) 193 H 252 H 382 H Assessment & Plan (1) Hypoglycemia associated with type 2 diabetes mellitus Assessment and Plan: Endocrine consult reason for consult: uncontrolled diabetes Source: patient and chart review Мария Ortega is 67 y/o admitted for wekness found with UTI & small pericardial effusion , glucose >400 to 500 as per pt. has DM since 1990 (-) neuropathy , (-) retinopathy , (-) nephropathy (+) CADs/p stent (-) PVD outpatient diabetes management regimen : lantus 20 units daiy & Jauniva 100 mg po qd blood glucose log : 190-300 , yesterday episode 41 as per pt. asymptomatic Allergy iodine Past medical history:HTN , hyperlipidemia , CAD Past surgical history: hystrectomy , cardiac cath s/p stent , intestinal obstruction Psychiatry history: denies Social history: denies smoking , ETOH use , illicit drug use Family history: sibling with diabetes ROS: Constitutional: denies fever, tiredness/weakness. HEENT: denies earache, change in voice .Respiratory: denies cough, sob . CVS :no chest pain, no palpitations . Abdomen: no abdominal pain, no nausea /vomiting, no change bowel movement. 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 Extremities: no edema, no tremors. 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 allergy to Iodine Thank you for allowing me to participate in the care of the patient, we will follow with you. Polina Medel # [phone] office Fridays & Saturdays address: [address] [place] [address] ,phone # [phone] ,FAX [phone] Status: Acute (2) Diabetes mellitus, insulin dependent (IDDM), uncontrolled Status: Acute (3) UTI (urinary tract infection) Status: Acute
[2018-05-17] MEDS: Amikacin Sulfate 500 MG in Sodium Chloride 0.9% 250 ML IVPB SCH ×2 (22:09→22:29)
[2018-05-17] MEDS: (Lantus) Insulin Glargine, Recombinant SC SCH (22:10)
--- NOTE | 2018-05-17 23:12 | CP.PCM.PN ---
Subjective - Date & Time of Evaluation Date of Evaluation: 05/17/18 Time of Evaluation: 07:20 - Subjective Subjective: dictated Objective - Vital Signs/Intake and Output Vital Signs (last 24 hours): Temp Pulse Resp BP Pulse Ox 99.1 F 116 H 20 145/72 94 L 05/17/18 15:09 05/17/18 16:30 05/17/18 15:09 05/17/18 15:09 05/17/18 15:09 - Medications Medications: Current Medications Acetaminophen (Tylenol 325mg Tab) 650 mg PO Q4 PRN PRN Reason: Fever >100.4 F Last Admin: 05/14/18 20:22 Dose: 650 mg Docusate Sodium (Colace) 100 mg PO DAILY [facility] Last Admin: 05/17/18 10:36 Dose: 100 mg Emollient Ointment (Vaseline Oint) 5 gm TOP QID [facility] Last Admin: 05/17/18 21:39 Dose: Not Given Enoxaparin Sodium (Lovenox) 30 mg SC DAILY [facility] Last Admin: 05/17/18 10:37 Dose: 30 mg Hydralazine HCl (Apresoline) 25 mg PO TID [facility] Last Admin: 05/17/18 18:21 Dose: 25 mg Amikacin Sulfate 500 mg/ (Sodium Chloride) 252 mls @ 250 mls/hr IVPB Q24H [facility]; Protocol Last Admin: 05/17/18 22:29 Dose: 250 mls/hr Metronidazole (Flagyl) 500 mg in 100 mls @ 100 mls/hr IVPB Q8H [facility]; Protocol Last Admin: 05/17/18 22:29 Dose: 100 mls/hr Cefepime HCl 1 gm/ Sodium (Chloride) 100 mls @ 100 mls/hr IVPB Q12H [facility]; Protocol Last Admin: 05/17/18 18:21 Dose: 100 mls/hr Insulin Glargine (Lantus) 20 unit SC HS [facility] Last Admin: 05/17/18 22:10 Dose: Not Given Insulin Human Regular (Novolin R) 0 unit SC ACHS [facility]; Protocol Last Admin: 05/17/18 22:01 Dose: Not Given Insulin Human Regular (Novolin R) 3 unit SC TIDPC [facility] Lisinopril (Zestril) 10 mg PO DAILY [facility] Last Admin: 05/17/18 10:36 Dose: 10 mg Metoclopramide HCl (Reglan) 10 mg IVP Q8 [facility] Last Admin: 05/17/18 22:10 Dose: 10 mg Pantoprazole Sodium (Protonix Ec Tab) 40 mg PO DAILY [facility] Last Admin: 05/17/18 10:36 Dose: 40 mg - Labs Labs: 05/15/18 07:26 05/15/18 07:26 PT 13.9 SECONDS (9.7-12.2) H 05/12/18 13:20 INR 1.3 05/12/18 13:20 APTT 36 SECONDS (21-34) H 05/12/18 13:20
--- NOTE | 2018-05-18 01:24 | PN ---
DATE: 05/17/2018 SUBJECTIVE: The patient denied any chest pain or abdominal pain. PHYSICAL EXAMINATION: VITAL SIGNS: Blood pressure 154/104, heart rate 99, temperature 97.9, and respirations 20. HEENT: Normocephalic. CHEST: Clear. HEART: S1 and S2 regular. ABDOMEN: Soft. EXTREMITIES: No edema. LABORATORY DATA: Repeat echocardiographic study revealed a very small pericardial effusion, which was mistyped as pleural effusion in the official report, with only minimal right atrial collapse. No respiratory variation in the left ventricular outflow velocity. Also, the cardiothoracic surgical evaluation was reviewed, and as per the conclusion, monitor vitals, continue medical management. No surgical intervention at this time. ASSESSMENT: 1. Small pericardial effusion with minimal collapse of the right atrium. 2. Status post small bowel obstruction. 3. Diabetes mellitus. 4. Escherichia coli bacteremia. RECOMMENDATIONS: Continue current IV amikacin, IV cefepime. Continue hydralazine 25 mg t.i.d., IV Flagyl 500 mg every 8 hours, and Zestril 10 mg once a day, which was started today. The patient is recommended to undergo repeat echocardiographic study in two to three months. Royal Ernandez MD
--- NOTE | 2018-05-18 03:15 | PN ---
DATE: 05/17/2018 SUBJECTIVE: The patient is feeling better. She has bowel movement. She is tolerating diet. Her blood sugars are under better control. No episodes of hypoglycemia. No nausea or vomiting. PHYSICAL EXAMINATION: VITAL SIGNS: Blood pressure 144/72, pulse 111, respiratory rate 20, and temperature 99.1. LUNGS: Clear. ABDOMEN: Soft, nontender. Bowel sounds are positive. ASSESSMENT: 1. Urinary tract infection, multidrug-resistant, Escherichia coli. The patient is on cefepime. She is also on amikacin. 2. Hypertension. 3. Poorly-controlled diabetes. PLAN: Admit. Detailed orders are written. Seen and examined. Continue antibiotics per ID. Saroj Rendon MD
[2018-05-18] MEDS: Cefepime 1 GM in Sodium Chloride 0.9% 100 ML IVPB SCH ×2 (03:32→16:46)
[2018-05-18 06:43] LABS: HEMOGLOBIN 11.4 g/dL (11.0-16.0); MEAN CELL VOLUME 84.6 fL (81.0-99.0); MEAN CORPUSCULAR HEMOGLOBIN 27.4 pg (27.0-31.0); MEAN CORPUSCULAR HGB CONC 32.4 g/dL (33.0-37.0); MEAN PLATELET VOLUME 8.3 fL (7.2-11.7); RBC 4.15 Mil/uL (3.80-5.20); RED CELL DISTRIBUTION WIDTH 16.3 % (11.5-14.5); WHITE BLOOD COUNT 11.9 K/uL (4.8-10.8)
[2018-05-18] MEDS: metroNIDAZOLE IV 500 mg/100 ml 500 MG/100 ML BAG IVPB SCH ×3 (06:47→22:33)
[2018-05-18 06:49] LABS: ALB/GLOB RATIO 0.8 (1.0-2.1); ALBUMIN 2.7 g/dL (3.5-5.0)
[2018-05-18] MEDS: (Novolin R) Insulin Human Regular 100 units/ml vial SC SCH ×7 (07:52→22:20)
[2018-05-18] MEDS: Pantoprazole 40 mg EC Tab PO SCH (09:18)
[2018-05-18] MEDS: Petrolatum Oint Foilpak (5 gm) TOP SCH ×3 (09:29→22:10)
[2018-05-18] MEDS: Enoxaparin 30 mg Syringe SC SCH (09:29)
[2018-05-18] MEDS ORDERED: Propofol 10 mg/ml Inj (20 ML) ONE (10:44)
[2018-05-18] MEDS: Sucralfate 1 gm/10 ml Oral Susp UD PO SCH ×2 (13:19→17:55)
--- NOTE | 2018-05-18 16:58 | CP.PCM.PN ---
Subjective - Date & Time of Evaluation Date of Evaluation: 05/18/18 Time of Evaluation: 16:58 - Subjective Subjective: AFEBRILE, NO COMPLAINTS, DENIES ABD . PAIN C/O INCONTINENT OF URINE. seen by CARDIO-thoracic surgery for PERICARDIAL EFFUSION events noted- NO FURTHER INTERVENTION Objective - Vital Signs/Intake and Output Vital Signs (last 24 hours): Temp Pulse Resp BP Pulse Ox 97 F L 116 H 16 176/99 H 100 05/18/18 10:58 05/18/18 12:13 05/18/18 11:28 05/18/18 11:28 05/18/18 11:28 Intake and Output: 05/18/18 05/18/18 06:59 18:59 Intake Total 200 300 Output Total 600 Balance -400 300 - Medications Medications: Current Medications Acetaminophen (Tylenol 325mg Tab) 650 mg PO Q4 PRN PRN Reason: Fever >100.4 F Last Admin: 05/14/18 20:22 Dose: 650 mg Docusate Sodium (Colace) 100 mg PO DAILY [facility] Last Admin: 05/18/18 09:18 Dose: Not Given Emollient Ointment (Vaseline Oint) 5 gm TOP QID [facility] Last Admin: 05/18/18 09:29 Dose: 5 gm Enoxaparin Sodium (Lovenox) 30 mg SC DAILY [facility] Last Admin: 05/18/18 09:29 Dose: 30 mg Fluconazole (Diflucan) 100 mg PO DAILY [facility]; Protocol Stop: 06/01/18 12:46 Last Admin: 05/18/18 13:28 Dose: 100 mg Hydralazine HCl (Apresoline) 25 mg PO TID [facility] Last Admin: 05/18/18 13:19 Dose: 25 mg Amikacin Sulfate 500 mg/ (Sodium Chloride) 252 mls @ 250 mls/hr IVPB Q24H [facility]; Protocol Last Admin: 05/17/18 22:29 Dose: 250 mls/hr Metronidazole (Flagyl) 500 mg in 100 mls @ 100 mls/hr IVPB Q8H [facility]; Protocol Last Admin: 05/18/18 14:40 Dose: 100 mls/hr Cefepime HCl 1 gm/ Sodium (Chloride) 100 mls @ 100 mls/hr IVPB Q12H [facility]; Prot ocol Last Admin: 04/01/19 16:46 Dose: 100 mls/hr Magnesium Sulfate/Dextrose (Magnesium Sulfate 1 Gm/100 Ml D5w) 1 gm in 100 mls @ 300 mls/hr IVPB Q30M [facility] Stop: 05/18/18 17:19 Potassium Chloride (Potassium Chloride 20 Meq/100 Ml) 20 meq in 100 mls @ 50 mls/hr IVPB ONCE ONE Stop: 05/18/18 18:22 Insulin Glargine (Lantus) 20 unit SC HS [facility] Last Admin: 05/17/18 22:10 Dose: Not Given Insulin Human Regular (Novolin R) 0 unit SC ACHS [facility]; Protocol Last Admin: 05/18/18 12:11 Dose: 4 units Insulin Human Regular (Novolin R) 3 unit SC TIDPC [facility] Last Admin: 05/18/18 13:19 Dose: 3 units Lisinopril (Zestril) 10 mg PO DAILY [facility] Last Admin: 05/18/18 09:18 Dose: Not Given Metoclopramide HCl (Reglan) 10 mg IVP Q8 [facility] Last Admin: 05/18/18 13:19 Dose: 10 mg Pantoprazole Sodium (Protonix Ec Tab) 40 mg PO DAILY [facility] Last Admin: 05/18/18 09:18 Dose: Not Given Sucralfate (Carafate Oral Susp) 1 gm PO TID [facility] Last Admin: 05/18/18 13:19 Dose: 1 gm - Labs Labs: 05/18/18 06:22 05/18/18 06:22 PT 13.9 SECONDS (9.7-12.2) H 05/12/18 13:20 INR 1.3 05/12/18 13:20 APTT 36 SECONDS (21-34) H 05/12/18 13:20 - Constitutional Appears: No Acute Distress, Cachectic, Chronically Ill - Head Exam Head Exam: NORMAL INSPECTION - Eye Exam Eye Exam: EOMI, PERRL - ENT Exam ENT Exam: Normal Oropharynx - Neck Exam Neck Exam: Normal Inspection - Respiratory Exam Respiratory Exam: Clear to Ausculation Bilateral, NORMAL BREATHING PATTERN - Cardiovascular Exam Cardiovascular Exam: Tachycardia, REGULAR RHYTHM, +S1, +S2 - GI/Abdominal Exam GI & Abdominal Exam: Soft, Normal Bowel Sounds. absent: Tenderness - Neurological Exam Neurological Exam: Alert, Awake, CN II-XII Intact, Normal Gait, Oriented x3, Reflexes Normal - Psychiatric Exam Psychiatric exam: Normal Mood - Skin Skin Exam: Normal Color, Warm Assessment and Plan (1) Abdominal pain Status: Acute (2) Gram negative sepsis Assessment & Plan: SOURCE OF GNS -MOST LIKELY / VS GI. F/U REPEAT BLOOD CULTURES ON IV ABX D/C IV AMIKACIN Status: Acute (3) UTI (urinary tract infection) Status: Acute (4) Diabetes mellitus Status: Acute (5) Constipation Status: Acute - Assessment and Plan (Free Text) Plan: PLAN; CONTINUE IV CEFEPIME 1GM IVPB Q 12HRLY 05/14/18 CONTINUE IV FLAGYL 500MG IVPB Q 8HRLY 05/14/18. dc IV AMIKACIN 500MG IVPB STAT 05/14/18 -dc 05/18/18 F/U REPEAT BLOOD CULTURES. PER SURGERY .
[2018-05-18 17:23] VITALS: RESP 20
[2018-05-18] MEDS: Magnesium Sulfate 1 gm in D5W 1 GM/100 ML BAG IVPB SCH ×2 (18:50→18:57)
[2018-05-18] MEDS: Magnesium Oxide 400 mg Tab UD PO SCH (18:57)
[2018-05-18] MEDS ORDERED: Potassium Chloride 20 mEq/15 ml LIQ UD PO ONE (19:00)
[2018-05-18] MEDS: Amikacin Sulfate 500 MG in Sodium Chloride 0.9% 250 ML IVPB SCH (21:08)
--- NOTE | 2018-05-18 22:01 | CP.PCM.PN ---
Subjective - Date & Time of Evaluation Date of Evaluation: 05/18/18 Time of Evaluation: 09:00 - Subjective Subjective: dictated Objective - Vital Signs/Intake and Output Vital Signs (last 24 hours): Temp Pulse Resp BP Pulse Ox 98.6 F 70 20 133/81 96 05/18/18 15:35 05/18/18 15:35 05/18/18 15:35 05/18/18 15:35 05/18/18 15:35 Intake and Output: 05/18/18 05/19/18 18:59 06:59 Intake Total 300 Balance 300 - Medications Medications: Current Medications Acetaminophen (Tylenol 325mg Tab) 650 mg PO Q4 PRN PRN Reason: Fever >100.4 F Last Admin: 05/14/18 20:22 Dose: 650 mg Docusate Sodium (Colace) 100 mg PO DAILY [facility] Last Admin: 05/18/18 09:18 Dose: Not Given Emollient Ointment (Vaseline Oint) 5 gm TOP QID [facility] Last Admin: 05/18/18 18:19 Dose: Not Given Enoxaparin Sodium (Lovenox) 30 mg SC DAILY [facility] Last Admin: 05/18/18 09:29 Dose: 30 mg Fluconazole (Diflucan) 100 mg PO DAILY [facility]; Protocol Stop: 06/01/18 12:46 Last Admin: 05/18/18 13:28 Dose: 100 mg Hydralazine HCl (Apresoline) 25 mg PO TID [facility] Last Admin: 05/18/18 17:55 Dose: 25 mg Amikacin Sulfate 500 mg/ (Sodium Chloride) 252 mls @ 250 mls/hr IVPB Q24H [facility]; Protocol Last Admin: 05/18/18 21:08 Dose: 250 mls/hr Metronidazole (Flagyl) 500 mg in 100 mls @ 100 mls/hr IVPB Q8H [facility]; Protocol Last Admin: 05/18/18 14:40 Dose: 100 mls/hr Cefepime HCl 1 gm/ Sodium (Chloride) 100 mls @ 100 mls/hr IVPB Q12H [facility]; Protocol Last Admin: 05/18/18 16:46 Dose: 100 mls/hr Insulin Glargine (Lantus) 20 unit SC HS [facility] Last Admin: 05/17/18 22:10 Dose: Not Given Insulin Human Regular (Novolin R) 0 unit SC ACHS [facility]; Protocol Last Admin: 05/18/18 17:55 Dose: 3 units Insulin Human Regular (Novolin R) 3 unit SC TIDPC [facility] Last Admin: 05/18/18 17:55 Dose: 3 units Lisinopril (Zestril) 10 mg PO DAILY [facility] Last Admin: 05/18/18 09:18 Dose: Not Given Magnesium Oxide (Mag-Ox) 400 mg PO BID [facility] Last Admin: 05/18/18 18:57 Dose: 400 mg Metoclopramide HCl (Reglan) 10 mg IVP Q8 [facility] Last Admin: 05/18/18 13:19 Dose: 10 mg Pantoprazole Sodium (Protonix Ec Tab) 40 mg PO DAILY [facility] Last Admin: 05/18/18 09:18 Dose: Not Given Sucralfate (Carafate Oral Susp) 1 gm PO TID [facility] Last Admin: 05/18/18 17:55 Dose: 1 gm - Labs Labs: 05/18/18 06:22 05/18/18 06:22 PT 13.9 SECONDS (9.7-12.2) H 05/12/18 13:20 INR 1.3 05/12/18 13:20 APTT 36 SECONDS (21-34) H 05/12/18 13:20
[2018-05-18] MEDS: (Lantus) Insulin Glargine, Recombinant SC SCH (22:21)
--- NOTE | 2018-05-18 22:35 | PN ---
DATE: 05/18/2018 FOLLOWUP SUBJECTIVE: The patient denies any chest pain, palpitation, dizziness, or abdominal discomfort. PHYSICAL EXAMINATION: VITAL SIGNS: Blood pressure 176/99, heart rate 100, temperature 97, respiration 20. HEENT: Normocephalic. CHEST: Clear. HEART: S1 and S2, regular. ABDOMEN: Soft. EXTREMITIES: No edema. LABORATORY DATA: Hemoglobin and hematocrit 11.4 and 35.1, white count 11.9, and platelet count 372,000. Today's SMA-7: Sodium 130, potassium 3.4, chloride 93, CO2 of 31, glucose 106, BUN 14, creatinine 1.1. Magnesium is 1.5, phosphorus 2.4. Both magnesium and phosphorus are below normal. The patient underwent an EGD with cold biopsy and polypectomy and antral biopsy today, and the findings were grade C Anaya esophagitis, medium-sized hiatus hernia, erythematous mucosa in the antrum which was biopsied, erythematous duodenopathy, few gastric polyps resected and retrieved. ASSESSMENT: 1. Small pericardial effusion with minimal diastolic right atrial compression. 2. Status post small bowel obstruction. 3. Hiatus hernia, Anaya esophagitis, gastritis, and duodenitis. 4. Hypokalemia and hypomagnesemia as well as hyponatremia and hypophosphatemia. RECOMMENDATIONS: Continue current IV amikacin at 500 mg daily, hydralazine 25 mg t.i.d., IV cefepime at 1 g every 12 hours, Diflucan 100 mg daily, Flagyl 500 mg intravenously every 8 hours, subcutaneous Lovenox at 30 mg once a day, Zestril at 10 mg once a day. I will start both magnesium sulfate replacement with 2 g and KCl intravenous replacement with 20 mEq. Follow up BMP and magnesium level in a.m. Royal Ernandez MD
[2018-05-19] MEDS: Cefepime 1 GM in Sodium Chloride 0.9% 100 ML IVPB SCH (03:25)
--- NOTE | 2018-05-19 03:31 | PN ---
DATE: 05/18/2018 SUBJECTIVE: The patient is afebrile. She has decreased urination at times. She denies any nausea, vomiting. No chest pain. The patient's potassium is low, magnesium is low. PHYSICAL EXAMINATION: VITAL SIGNS: Blood pressure 133/81, pulse 70, respiratory rate 20, temperature 98.6. LUNGS: Clear. No rales. No rhonchi. CARDIOVASCULAR SYSTEM: S1 and S2, regular. ABDOMEN: Soft, nontender. Bowel sounds are positive. ASSESSMENT: 1. Gram-negative septicemia with Escherichia coli with urinary tract infection, improving. The patient is on double antibiotics. 2. Hypertension, poorly controlled. 3. Type 2 diabetes, poorly controlled. 4. Status post intestinal obstruction, resolved. PLAN: Medical management. IV antibiotics. Discussed with Infectious Disease for plan of care. Saroj Rendon MD
[2018-05-19 05:50] LABS: SQUAMOUS EPITHIAL < 1 /hpf (0-5); URINE BACTERIA RARE (<OCC); URINE BILIRUBIN NEGATIVE (NEGATIVE); URINE BLOOD 1+ (NEGATIVE); URINE CLARITY Clear (Clear); URINE COLOR Straw (YELLOW); URINE GLUCOSE (UA) 1+ mg/dL (Normal); URINE LEUKOCYTE ESTERASE TRACE Leu/uL (Negative); URINE PROTEIN 2+ mg/dL (NEGATIVE); URINE UROBILINOGEN NORMAL mg/dL (0.2-1.0)
[2018-05-19 07:32] LABS: CALCIUM 8.6 mg/dl (8.6-10.4)
[2018-05-19] MEDS: (Novolin R) Insulin Human Regular 100 units/ml vial SC SCH ×8 (07:35→17:30)
[2018-05-19] MEDS: metroNIDAZOLE IV 500 mg/100 ml 500 MG/100 ML BAG IVPB SCH (08:05)
[2018-05-19] MEDS: Sucralfate 1 gm/10 ml Oral Susp UD PO SCH ×3 (09:10→17:30)
[2018-05-19] MEDS: Pantoprazole 40 mg EC Tab PO SCH (09:11)
[2018-05-19] MEDS: Magnesium Oxide 400 mg Tab UD PO SCH ×2 (09:11→17:28)
[2018-05-19] MEDS: Enoxaparin 30 mg Syringe SC SCH (09:11)
[2018-05-19] MEDS: Petrolatum Oint Foilpak (5 gm) TOP SCH ×2 (09:11→13:04)
[2018-05-19] MEDS: Potassium Chloride 20 mEq ER Tab PO SCH ×2 (12:12→17:29)
--- NOTE | 2018-05-19 14:32 | CP.PCM.PN ---
Subjective - Date & Time of Evaluation Date of Evaluation: 05/19/18 Time of Evaluation: 14:32 - Subjective Subjective: AFEBRILE, NO COMPLAINTS, LAB; REPEAT BLOOD CULTURES 05/18/18 -VE GROWTH FOR 24 HOURS REPEAT URINE CULTURE 05/18/18 -VE GROWTH. PLAN ; CASE DISCUSSED WITH STAFF/ BINDING NICKER MR [facility] [place] DC IV ABX . PO VANTIN 200 MG BY MOUTH TWICE A DAY X 7DAYS. Objective - Vital Signs/Intake and Output Vital Signs (last 24 hours): Temp Pulse Resp BP Pulse Ox 98.5 F 97 H 20 146/78 96 05/19/18 07:00 05/19/18 07:26 05/19/18 07:00 05/19/18 07:00 05/19/18 07:00 - Medications Medications: Current Medications Acetaminophen (Tylenol 325mg Tab) 650 mg PO Q4 PRN PRN Reason: Fever >100.4 F Last Admin: 05/14/18 20:22 Dose: 650 mg Docusate Sodium (Colace) 100 mg PO DAILY [facility] Last Admin: 05/19/18 09:11 Dose: 100 mg Emollient Ointment (Vaseline Oint) 5 gm TOP QID [facility] Last Admin: 05/19/18 13:04 Dose: 5 gm Enoxaparin Sodium (Lovenox) 30 mg SC DAILY [facility] Last Admin: 05/19/18 09:11 Dose: 30 mg Fluconazole (Diflucan) 100 mg PO DAILY [facility]; Protocol Stop: 06/01/18 12:46 Last Admin: 05/19/18 09:11 Dose: 100 mg Hydralazine HCl (Apresoline) 25 mg PO TID [facility] Last Admin: 05/19/18 13:03 Dose: 25 mg Metronidazole (Flagyl) 500 mg in 100 mls @ 100 mls/hr IVPB Q8H [facility]; Protocol Last Admin: 05/19/18 08:05 Dose: 100 mls/hr Cefepime HCl 1 gm/ Sodium (Chloride) 100 mls @ 100 mls/hr IVPB Q12H [facility]; Protocol Last Admin: 05/19/18 03:25 Dose: 100 mls/hr Insulin Glargine (Lantus) 20 unit SC HS [facility] Last Admin: 05/18/18 22:21 Dose: 20 units Insulin Human Regular (Novolin R) 0 unit SC ACHS [facility]; Protocol Last Admin: 05/19/18 12:11 Dose: 3 units Insulin Human Regular (Novolin R) 3 unit SC TIDPC [facility] Last Admin: 05/19/18 13:04 Dose: 3 units Lisinopril (Zestril) 10 mg PO DAILY [facility] Last Admin: 05/19/18 09:11 Dose: 10 mg Magnesium Oxide (Mag-Ox) 400 mg PO BID [facility] Last Admin: 05/19/18 09:11 Dose: 400 mg Metoclopramide HCl (Reglan) 10 mg IVP Q8 [facility] Last Admin: 05/19/18 13:05 Dose: Not Given Pantoprazole Sodium (Protonix Ec Tab) 40 mg PO DAILY [facility] Last Admin: 05/19/18 09:11 Dose: 40 mg Potassium Chloride (K-Dur 20 Meq Er Tab) 40 meq PO Q4H [facility] Stop: 05/19/18 16:01 Last Admin: 05/19/18 12:12 Dose: 40 meq Sucralfate (Carafate Oral Susp) 1 gm PO TID [facility] Last Admin: 05/19/18 13:02 Dose: 1 gm - Labs Labs: 05/18/18 06:22 05/19/18 06:41 PT 13.9 SECONDS (9.7-12.2) H 05/12/18 13:20 INR 1.3 05/12/18 13:20 APTT 36 SECONDS (21-34) H 05/12/18 13:20 - Constitutional Appears: No Acute Distress, Cachectic, Chronically Ill - Head Exam Head Exam: NORMAL INSPECTION - Eye Exam Eye Exam: EOMI, PERRL - ENT Exam ENT Exam: Normal Oropharynx - Neck Exam Neck Exam: Normal Inspection - Respiratory Exam Respiratory Exam: Clear to Ausculation Bilateral, NORMAL BREATHING PATTERN - Cardiovascular Exam Cardiovascular Exam: REGULAR RHYTHM, +S1, +S2 - GI/Abdominal Exam GI & Abdominal Exam: Soft, Normal Bowel Sounds. absent: Tenderness, Mass - Extremities Exam Extremities Exam: Normal Capillary Refill. absent: Calf Tenderness, Pedal Edema - Neurological Exam Neurological Exam: Abnormal Gait, Alert, Awake, CN II-XII Intact, Oriented x3 - Psychiatric Exam Psychiatric exam: Depressed - Skin Skin Exam: Normal Color, Warm Assessment and Plan (1) Abdominal pain Status: Acute (2) Gram negative sepsis Status: Acute (3) UTI (urinary tract infection) Status: Acute (4) Diabetes mellitus Status: Acute (5) Constipation Status: Acute - Assessment and Plan (Free Text) Plan: PLAN; DC IV CEFEPIME 1GM IVPB Q 12HRLY 05/14/18 DC IV FLAGYL 500MG IVPB Q 8HRLY 05/14/18. dc IV AMIKACIN 500MG IVPB STAT 05/14/18 -dc 05/18/18 SWITCHED TO BY MOUTH vANTIN 200 MG TWICE A DAY FOR 7 DAYS. PER PMD PER SURGERY .
--- NOTE | 2018-05-19 16:59 | PN ---
DATE: 05/19/2018 LOCATION: 662, bed B. SUBJECTIVE: This is a 67-year-old female seen and examined in rounds without reported significant clinical changes or active bleeding with less nausea and vomiting. No chest pain or palpitation or significant complaint of shortness of breath. The entire chart is reviewed including but not limited to the most recent lab and radiology study results and today's lab results showed blood glucose level of 106, sodium 131, potassium 3.1 with CO2 content of 34 indicative of respiratory alkalosis. The patient recently reported to have leukocytosis, but normal hemoglobin and hematocrit with normal liver function test, but decreased albumin and decreased total protein. PHYSICAL EXAMINATION: GENERAL: A 67-year-old female. VITAL SIGNS: Afebrile with pulse of 96, respiratory rate 20-22, and blood pressure of 142/76. HEENT: Showed pale, dry oral mucous membrane. Nonicteric sclerae. LUNGS: Few scattered crepitation. Decreased air entry at bases. HEART: Positive S1 and S2. ABDOMEN: Soft with mild generalized tenderness. No mass or organomegaly. No rebound tenderness or guarding. EXTREMITIES: Without significant clubbing, cyanosis or edema. NEUROLOGICAL: No reported new neurological deficits, sensory or motor. IMPRESSION: 1. Peptic ulcer disease. 2. Gram-negative septicemia. 3. Poorly-controlled diabetes mellitus. 4. Reported recent history of small pericardial effusion. 5. Known history of hypertension. 6. Intermittent partial bowel obstruction versus an ileus, improved clinically. SUGGESTIONS: 1. Continue current management. 2. Follow up upper endoscopy and biopsy results. 3. Repeat H and H. 4. Further recommendation to follow. Rolanda Arteaga MD
[2018-05-19] MEDS ORDERED: Potassium Chloride 20 mEq ER Tab PO SCH (17:15)
[2018-05-19 17:42] VITALS: BP 147/82; PULSE 98; TEMP 97.6; O2SAT 97
--- NOTE | 2018-05-19 17:53 | CP.PCM.PN ---
Subjective - Date & Time of Evaluation Date of Evaluation: 05/19/18 Time of Evaluation: 17:52 - Subjective Subjective: PATIENT SEEN AND EXAMINED AT THE BEDSIDE Objective - Vital Signs/Intake and Output Vital Signs (last 24 hours): Temp Pulse Resp BP Pulse Ox 97.6 F 98 H 20 147/82 97 05/19/18 15:00 05/19/18 15:00 05/19/18 15:00 05/19/18 15:00 05/19/18 15:00 - Medications Medications: Current Medications Acetaminophen (Tylenol 325mg Tab) 650 mg PO Q4 PRN PRN Reason: Fever >100.4 F Last Admin: 05/14/18 20:22 Dose: 650 mg Docusate Sodium (Colace) 100 mg PO DAILY [facility] Last Admin: 05/19/18 09:11 Dose: 100 mg Emollient Ointment (Vaseline Oint) 5 gm TOP QID [facility] Last Admin: 05/19/18 13:04 Dose: 5 gm Enoxaparin Sodium (Lovenox) 30 mg SC DAILY [facility] Last Admin: 05/19/18 09:11 Dose: 30 mg Fluconazole (Diflucan) 100 mg PO DAILY [facility]; Protocol Stop: 06/01/18 12:46 Last Admin: 05/19/18 09:11 Dose: 100 mg Hydralazine HCl (Apresoline) 25 mg PO TID [facility] Last Admin: 05/19/18 13:03 Dose: 25 mg Metronidazole (Flagyl) 500 mg in 100 mls @ 100 mls/hr IVPB Q8H [facility]; Protocol Last Admin: 05/19/18 08:05 Dose: 100 mls/hr Cefepime HCl 1 gm/ Sodium (Chloride) 100 mls @ 100 mls/hr IVPB Q12H [facility]; Protocol Last Admin: 05/19/18 03:25 Dose: 100 mls/hr Insulin Glargine (Lantus) 20 unit SC HS [facility] Last Admin: 05/18/18 22:21 Dose: 20 units Insulin Human Regular (Novolin R) 0 unit SC ACHS [facility]; Protocol Last Admin: 05/19/18 17:28 Dose: 5 units Insulin Human Regular (Novolin R) 3 unit SC TIDPC [facility] Last Admin: 05/19/18 17:30 Dose: 3 units Lisinopril (Zestril) 10 mg PO DAILY [facility] Last Admin: 05/19/18 09:11 Dose: 10 mg Magnesium Oxide (Mag-Ox) 400 mg PO BID [facility] Last Admin: 05/19/18 17:28 Dose: 400 mg Metoclopramide HCl (Reglan) 10 mg IVP Q8 [facility] Last Admin: 05/19/18 13:05 Dose: Not Given Pantoprazole Sodium (Protonix Ec Tab) 40 mg PO DAILY [facility] Last Admin: 05/19/18 09:11 Dose: 40 mg Sucralfate (Carafate Oral Susp) 1 gm PO TID [facility] Last Admin: 05/19/18 17:30 Dose: 1 gm - Labs Labs: 05/18/18 06:22 05/19/18 06:41 PT 13.9 SECONDS (9.7-12.2) H 05/12/18 13:20 INR 1.3 05/12/18 13:20 APTT 36 SECONDS (21-34) H 05/12/18 13:20 Assessment and Plan - Assessment and Plan (Free Text) Assessment: FOLLOW UP WITH DR GALVAN IN HIS OFFICE -----CALL FOR APPOINTMENT FOLLOW UP WITH DR GURVINDER GLASS IN HER OFFICE -----CALL FOR APPOINTMENT FOR BETTER CONTROL OF BLOOD SUGAR CONTINUE HOME MEDICATION NEW PRESCRIPTION GIVEN VANTIN 200 MG PO BID FOR 7 DAYS LISINOPRIL 10 MG PO DAILY HYDRALAZINE 25 MG PO TID ACTIVITY TOLERATED AND HOME PHYSICAL THERAPY CALL DR GALVAN OR GO TO THE EMERGENCY ROOM IF SYMPTOM RETURN OR WORSENING
--- NOTE | 2018-05-19 21:25 | CP.PCM.DIS ---
Provider - Provider Date of Admission: 05/12/18 17:20 Attending physician: Saroj Rendon MD Consults: 05/12/18 17:22 Physician Consult Routine Comment: POSSIBLE SBO Consulting Provider: Robin Wise Jr. Consulting Physician: Robin Wise Jr. Reason for Consult: SURGERY 05/14/18 19:31 Infectious Disease Consult Routine Comment: fever temp. 102.4 Consulting Provider: Keke Mathew Consulting Physician: Keke Mathew Reason for Consult: fever temp 102.4 05/15/18 04:05 Cardiology Consult Routine Comment: Consulting Provider: Royal Ernandez Consulting Physician: Royal Ernandez Reason for Consult: pericardial effusion 05/15/18 04:06 Gastroenterology Consult Routine Comment: Consulting Provider: Rolanda Rodriguez Consulting Physician: Rolanda Rodriguez Reason for Consult: intestinal obstruction 05/15/18 15:50 Physician Consult Routine Comment: Consulting Provider: Quang Wilkes Consulting Physician: Quang Wilkes Reason for Consult: Tamponade 05/17/18 04:37 Endocrinology Consult Routine Comment: Consulting Provider: Polina Navarrete Consulting Physician: Polina Navarrete Reason for Consult: dm Time Spent in preparation of Discharge (in minutes): 30 Hospital Course - Lab Results Lab Results: Micro Results 05/18/18 13:39 Urine,Clean Catch Urine Culture - Final No Growth (<1,000 CFU/ML) 05/18/18 05:35 Blood-Venous Blood Culture - Preliminary NO GROWTH AFTER 24 HOURS 05/18/18 06:15 Blood-Venous Blood Culture - Preliminary NO GROWTH AFTER 24 HOURS 05/12/18 14:35 Blood Blood Culture - Final NO GROWTH AFTER 5 DAYS 05/12/18 14:35 Blood Gram Stain - Final TEST NOT PERFORMED 05/12/18 14:35 Blood Blood Culture - Final Escherichia Coli 05/12/18 14:35 Blood Gram Stain - Final 05/12/18 13:20 Urine,Clean Catch Urine Culture - Final Escherichia Coli Most Recent Lab Values WBC 11.9 K/uL (4.8-10.8) H 05/18/18 06:22 RBC 4.15 Mil/uL (3.80-5.20) 05/18/18 06:22 Hgb 11.4 g/dL (11.0-16.0) 05/18/18 06:22 Hct 35.1 % (34.0-47.0) 05/18/18 06:22 MCV 84.6 fL (81.0-99.0) 05/18/18 06:22 MCH 27.4 pg (27.0-31.0) 05/18/18 06:22 MCHC 32.4 g/dL (33.0-37.0) L 05/18/18 06:22 RDW 16.3 % (11.5-14.5) H 05/18/18 06:22 Plt Count 372 K/uL (130-400) 05/18/18 06:22 MPV 8.3 fL (7.2-11.7) 05/18/18 06:22 Neut % (Auto) 85.4 % (50.0-75.0) H 05/15/18 07:26 Lymph % (Auto) 4.5 % (20.0-40.0) L 05/15/18 07:26 Harris % (Auto) 9.5 % (0.0-10.0) 05/15/18 07:26 Eos % (Auto) 0.2 % (0.0-4.0) 05/15/18 07:26 Baso % (Auto) 0.4 % (0.0-2.0) 05/15/18 07:26 Neut # (Auto) 13.4 K/uL (1.8-7.0) H 05/15/18 07:26 Lymph # (Auto) 0.7 K/uL (1.0-4.3) L 05/15/18 07:26 Harris # (Auto) 1.5 K/uL (0.0-0.8) H 05/15/18 07:26 Eos # (Auto) 0.0 K/uL (0.0-0.7) 05/15/18 07:26 Baso # (Auto) 0.1 K/uL (0.0-0.2) 05/15/18 07:26 Neutrophils % (Manual) 82 % (50-75) H 05/15/18 07:26 Band Neutrophils % 3 % (0-2) H 05/15/18 07:26 Lymphocytes % (Manual) 6 % (20-40) L 05/15/18 07:26 Reactive Lymphs % 1 % (0-0) H 05/12/18 13:20 Monocytes % (Manual) 9 % (0-10) 05/15/18 07:26 Platelet Estimate Normal (NORMAL) 05/15/18 07:26 Large Platelets Present 05/15/18 07:26 Polychromasia Slight 05/13/18 11:33 Hypochromasia (manual) Slight 05/13/18 11:33 Poikilocytosis (manual Slight 05/15/18 07:26 Anisocytosis (manual) Slight 05/15/18 07:26 [place] Cells Slight 05/15/18 07:26 ESR 108 mm/hr (0-20) H 05/15/18 07:26 PT 13.9 SECONDS (9.7-12.2) H 05/12/18 13:20 INR 1.3 05/12/18 13:20 APTT 36 SECONDS (21-34) H 05/12/18 13:20 pO2 34 mm/Hg (30-55) 05/12/18 15:23 VBG pH 7.43 (7.32-7.43) 05/12/18 15:23 VBG pCO2 39 mmHg (40-60) L 05/12/18 15:23 VBG HCO3 25.3 mmol/L 05/12/18 15:23 VBG Total CO2 27.1 mmol/L (22-28) 05/12/18 15:23 VBG O2 Sat (Calc) 71.6 % (40-65) H 05/12/18 15:23 VBG Base Excess 1.5 mmol/L (0.0-2.0) 05/12/18 15:23 VBG Potassium 3.6 mmol/L (3.6-5.2) 05/12/18 15:23 Sodium 128.0 mmol/l (132-148) L 05/12/18 15:23 Chloride 94.0 mmol/L (98-107) L 05/12/18 15:23 Glucose 118 mg/dl (65-105) H 05/12/18 15:23 Lactate 0.9 mmol/L (0.7-2.1) 05/12/18 15:23 Sodium 131 mmol/L (132-148) L 05/19/18 06:41 Potassium 3.1 mmol/L (3.6-5.2) L 05/19/18 06:41 Chloride 94 mmol/L (98-107) L 05/19/18 06:41 Carbon Dioxide 34 mmol/L (22-30) H 05/19/18 06:41 Anion Gap 7 (10-20) L 05/19/18 06:41 BUN 13 mg/dL (7-17) 05/19/18 06:41 Creatinine 1.1 mg/dL (0.7-1.2) 05/19/18 06:41 Est GFR ( Amer) 60 05/19/18 06:41 Est GFR (Non-Af Amer) 50 05/19/18 06:41 POC Glucose (mg/dL) 357 mg/dL (65-110) H 05/19/18 16:50 Random Glucose 106 mg/dL (65-105) H D 05/19/18 06:41 Hemoglobin A1c 11.6 % (4.2-6.5) H 05/18/18 07:15 Calcium 8.6 mg/dl (8.6-10.4) 05/19/18 06:41 Phosphorus 2.4 mg/dL (2.5-4.5) L 05/18/18 06:22 Magnesium 1.8 mg/dL (1.6-2.3) 05/19/18 06:41 Total Bilirubin 0.5 mg/dL (0.2-1.3) 05/18/18 06:22 Direct Bilirubin 0.2 mg/dL (0.0-0.4) 05/15/18 07:26 AST 28 U/L (14-36) 05/18/18 06:22 ALT 23 U/L (9-52) 05/18/18 06:22 Alkaline Phosphatase 128 U/L (38-126) H D 05/18/18 06:22 NT-Pro-B Natriuret Pep 2280 pg/mL (0-900) H 05/15/18 07:26 Total Protein 6.0 g/dL (6.3-8.3) L 05/18/18 06:22 Albumin 2.7 g/dL (3.5-5.0) L 05/18/18 06:22 Globulin 3.3 gm/dL (2.2-3.9) 05/18/18 06:22 Albumin/Globulin Ratio 0.8 (1.0-2.1) L 05/18/18 06:22 TSH 3rd Generation 1.98 mIU/L (0.46-4.68) 05/15/18 07:26 Venous Blood Potassium 3.6 mmol/L (3.6-5.2) 05/12/18 15:23 Urine Color Straw (YELLOW) 05/19/18 05:41 Urine Clarity Clear (Clear) 05/19/18 05:41 Urine pH 7.0 (5.0-8.0) 05/19/18 05:41 Ur Specific [place] 1.006 (1.003-1.030) 05/19/18 05:41 Urine Protein 2+ mg/dL (NEGATIVE) H 05/19/18 05:41 Urine Glucose (UA) 1+ mg/dL (Normal) 05/19/18 05:41 Urine Ketones Negative mg/dL (NEGATIVE) 05/19/18 05:41 Urine Blood 1+ (NEGATIVE) H 05/19/18 05:41 Urine Nitrate Negative (NEGATIVE) 05/19/18 05:41 Urine Bilirubin Negative (NEGATIVE) 05/19/18 05:41 Urine Urobilinogen Normal mg/dL (0.2-1.0) 05/19/18 05:41 Ur Leukocyte Esterase Trace Brigitte/uL (Negative) 05/19/18 05:41 Urine WBC (Auto) 5 /hpf (0-5) 05/19/18 05:41 Urine RBC (Auto) 6 /hpf (0-3) H 05/19/18 05:41 Urine WBC Clumps (Auto) Many /hpf (NONE) H 05/12/18 13:20 Ur Squamous Epith Cells < 1 /hpf (0-5) 05/19/18 05:41 Urine Bacteria Rare (<OCC) 05/19/18 05:41 Influenza Typ A,B (EIA) Negative for flu a/b (NEGATIVE) 05/12/18 13:20 Discharge Exam - Head Exam Head Exam: NORMAL INSPECTION Discharge Plan - Discharge Medications Prescriptions: hydrALAZINE [Apresoline] 25 mg PO TID 30 Days tab Cefpodoxime [Vantin] 200 mg PO BID 7 Days tab Lisinopril [Zestril] 10 mg PO DAILY 30 Days tab - Follow Up Plan Condition: STABLE Disposition: HOME/ ROUTINE Instructions: Diabetes Exchange Diet, Urinary Tract Infection, Adult (DC), Diabetes Diet , Cefpodoxime, Hydralazine, Lisinopril, Failure to Thrive, Adult (DC) Additional Instructions: FOLLOW UP WITH DR RENDON IN HIS OFFICE -----CALL FOR APPOINTMENT FOLLOW UP WITH DR GURVINDER GLASS IN HER OFFICE -----CALL FOR APPOINTMENT FOR BETTER CONTROL OF BLOOD SUGAR CONTINUE HOME MEDICATION NEW PRESCRIPTION GIVEN VANTIN 200 MG PO BID FOR 7 DAYS LISINOPRIL 10 MG PO DAILY HYDRALAZINE 25 MG PO TID ACTIVITY TOLERATED AND HOME PHYSICAL THERAPY CALL DR RENDON OR GO TO THE EMERGENCY ROOM IF SYMPTOM RETURN OR WORSENING Referrals: Rolanda Rodriguez [Staff Provider] - Royal Ernandez MD [Staff Provider] - Keke Mathew MD [Staff Provider] - Saroj Rendon MD [Staff Provider] -
--- NOTE | 2018-05-19 21:37 | PN ---
DATE: 05/19/2018 SUBJECTIVE: The patient denies chest pain or shortness breath. PHYSICAL EXAMINATION: VITAL SIGNS: Blood pressure 146/78, heart rate 100, temperature 98.5, respiration 20. HEENT: Head normocephalic. CHEST: Clear. HEART: S1 and S2, regular. No pericardial rub. ABDOMEN: Soft. EXTREMITIES: No edema. LABORATORY DATA: Today's SMA-7: Sodium 131, potassium 3.1, chloride 94, CO2 of 34, glucose 106, BUN 13, creatinine 1.1. Magnesium is 1.8. ASSESSMENT: 1. Small pericardial effusion with minimal diastolic compression of right atrium. 2. Status post small bowel obstruction. 3. Gastritis, duodenitis, hiatus hernia, esophageal candidiasis. 4. Hypokalemia and hyponatremia. RECOMMENDATIONS: Continue hydralazine 25 mg three timed daily, Carafate 1 g three times daily, intravenous cefepime at 1 g every 12 hours, Flagyl 500 mg intravenously every 8 hours, Lovenox at 30 mg subcutaneous daily, Zestril 10 mg once a day. The patient did receive 40 mEq of KCl orally today. I recommend followup BMP in the a.m. Royal Ernandez MD
--- NOTE | 2018-05-20 06:08 | DS ---
DISCHARGE DIAGNOSES: 1. Urinary tract infection. 2. Intestinal obstruction. 3. Hypertension. 4. Poorly controlled diabetes. HOSPITAL COURSE: This is a 67-year-old female with a history of diabetes, hypertension, hyperlipidemia. She is compliant with diet, medication and followup. She has prior history of intestinal obstruction. She came back again because of lack of bowel movement, lack of flatus along with abdominal distention. The patient was evaluated in the ER and found to have colon obstruction and the patient was admitted, started on n.p.o., IV fluids, Accu-Chek, sliding scale and later on, the patient was found to have urinary tract infection which is E. coli which was pansensitive. The patient's condition improved. She started having bowel movement and she is for discharge. Condition upon discharge is stable. The patient was given potassium supplementation. PHYSICAL EXAMINATION: LUNGS: Clear. ABDOMEN: Soft and nontender. Bowel sounds are positive. ASSESSMENT: 1. Urinary tract infection. 2. Intestinal obstruction. PLAN: Discharge the patient with outpatient followup. Saroj Rendon MD
--- NOTE | 2018-05-20 22:51 | PQF ---
PROVIDER RESPONSE TEXT: Sepsis ruled out REVIEWER QUERY TEXT: Rule Out Sepsis Clarification Rule out Sepsis is documented in the Medical Record. Please clarify whether: -- Patient has sepsis - Please document confirmed, suspected or probable causative organism - Please document confirmed, suspected or probable localized infection - Please clarify if sepsis is related to a device - Please clarify if sepsis was present on admission -- Sepsis was ruled out (include corresponding diagnosis for patient?s clinical picture and treatment ) -- Patient had sepsis which is resolved -- Other, please specify The patient's Clinical Indicators include: 05/12/18 POSITIVE GNROD 05/18/18 PN SEPTICIMIA 03/21 GN/E COLI PLEASE CLARIFY AND DOCUMENT IF SEPSIS WAS R/I -==OR===R/O Query created by: Krista Alatorre on 05/20/2018 9:43 AM Electronically signed by: Saroj Rendon MD 05/20/2018 10:48 PM
--- NOTE | 2018-05-21 04:38 | CON ---
DATE: 05/15/[address] Arteaga to Dr. Saroj Rendon. LOCATION: Room 662, bed B. I was called for GI consultation by the admitting MD. The patient is seen and fully examined on 05/15/2018 as requested by the admitting medical staff. The entire chart is reviewed including but not limited to the most recent lab and radiology study results, current and the previous medication list, current and the previous medical events. A short handwritten consultation sheet left in the chart immediately after my physical examination and GI consultation on 05/15/2018. HISTORY OF PRESENT ILLNESS: This is a 67-year-old female who was admitted to the hospital through the emergency room with generalized weakness and malaise with mild dyspepsia, poor oral intake with nausea, with loss of appetite, and excessive body weight loss recently for the last 3-4 months prior to her admission, but no reported chest pain, palpitation and no reported significant shortness of breath, chills or fever. PAST MEDICAL HISTORY: Including mainly but not limited to, 1. Hypertension. 2. Peptic ulcer disease. FAMILY HISTORY: Unknown. SOCIAL HISTORY: Denied any recent history of cigarette smoking or alcohol intake. ALLERGIES TO MEDICATIONS: IODINE. CURRENT MEDICATIONS: Post-admission medication list is reviewed. LABORATORY DATA: Initial CAT scan of the abdomen and the pelvis post admission, report is seen with possible small bowel previous surgery. Most recent lab results showed leukocytosis of 15.6 with normal hemoglobin and hematocrit and normal platelet count with blood glucose level of 354, increased alkaline phosphatase, albumin 2.7, total protein of 5.7. PHYSICAL EXAMINATION: GENERAL: A 67-year-old female, appeared to be awake, alert. VITAL SIGNS: Low-grade temperature of 99.6, blood pressure of 160/84, pulse of 102, respiratory rate 20-22. HEENT: Showed dry mucous membrane. Nonicteric sclerae. LUNGS: Few scattered crepitation. Decreased air entry at bases. HEART: Positive S1 and S2 with increased rate. ABDOMEN: Soft with mild generalized tenderness. No mass or organomegaly. No rebound tenderness or guarding. EXTREMITIES: Without significant clubbing, cyanosis or edema. NEUROLOGIC: No reported new neurological deficits, sensory or motor. RECTAL: The patient refused. IMPRESSION: 1. Re-exacerbation of peptic ulcer disease. 2. To rule out intermittent partial bowel obstruction. 3. To rule out intermittent partial gastric outlet obstruction with gastric versus duodenal ulcer. 4. Multiple past medical history as mentioned above. 5. Recently reported small pericardial effusion, discussed with the call center consultant on the case. 6. Malnutrition with hypoalbuminemia, hypoproteinemia. 7. History of hypertension. SUGGESTIONS: 1. Continue current management. 2. Upper GI with small bowel follow-through versus upper endoscopy when the patient is more stable clinically. 3. Reglan IV. 4. Proton pump inhibitor therapy. 5. Cancer markers including CEA. 6. Serum lipase, amylase level. 7. Endoscopic evaluation of the upper GI tract when the patient is more stable clinically. 8. Further recommendation to follow. Thank you for letting me participate in your patient's case management. Rolanda Arteaga MD
== END 2018-05-19 19:27 | disposition home or self-care (01) | DRG 690 ==
LOC: C.ER 11:02 → C.9E 17:20 → C.6T 18:06
PROVIDERS: ADMIT Internal Medicine; ATTEND Internal Medicine
PROC: 0DB78ZZ Excision of Stomach, Pylorus, Via Natural or Artificial Opening Endoscopic (ICD-10-PCS; 2018-05-18)
PROC: 0DB68ZX Excision of Stomach, Via Natural or Artificial Opening Endoscopic, Diagnostic (ICD-10-PCS; principal; 2018-05-18 10:41)
DX: N39.0 Urinary tract infection, site not specified (principal); B37.81 Candidal esophagitis; K56.50 Intestinal adhesions [bands], unspecified as to partial versus complete obstruction; E46 Unspecified protein-calorie malnutrition; I31.3 Pericardial effusion (noninflammatory); I31.4 Cardiac tamponade; E87.1 Hypo-osmolality and hyponatremia; R32 Unspecified urinary incontinence; K29.70 Gastritis, unspecified, without bleeding; K29.80 Duodenitis without bleeding; K44.9 Diaphragmatic hernia without obstruction or gangrene; R62.7 Adult failure to thrive; Z68.22 Body mass index [BMI] 22.0-22.9, adult; Z79.4 Long term (current) use of insulin; E87.6 Hypokalemia; Z87.891 Personal history of nicotine dependence; E11.649 Type 2 diabetes mellitus with hypoglycemia without coma; E78.5 Hyperlipidemia, unspecified; E86.0 Dehydration; I11.0 Hypertensive heart disease with heart failure; I25.10 Atherosclerotic heart disease of native coronary artery without angina pectoris; I50.9 Heart failure, unspecified; E11.65 Type 2 diabetes mellitus with hyperglycemia; K27.9 Peptic ulcer, site unspecified, unspecified as acute or chronic, without hemorrhage or perforation; E77.8 Other disorders of glycoprotein metabolism